=== PATIENT | male | born 1980 | race Caucasian/White ===

== ENCOUNTER 2018-04-15 16:47 | Inpatient (IN) ==
[2018-04-15] MEDS ORDERED: fentaNYL 10 mcg/mL Premix Drip 2,500 MCG/250 ML BAG IV.SIG PRN (22:47)
[2018-04-15] MEDS ORDERED: Morphine Inj 4 MG/ML Vial IV.PUSH PRN (22:47)
[2018-04-15] MEDS ORDERED: Bisacodyl 10 MG Supp RECTAL PRN (22:47)
[2018-04-15] MEDS ORDERED: Acetaminophen 325 MG Tablet PO PRN (22:47)
--- NOTE | 2018-04-15 22:53 | P.HPCC ---
History of Present Illness Primary Care Physician: UNKNOWN History of Present Illness: 38-year-old male was brought in the emergency department if [place] by his friend as an overdose of methamphetamines. Patient was agitated with aggressive behavior, uncontrolled movements, pressured speech, labored breathing, palpitations, chest pain, unsteady gait on a constant state of movement on the bed. Initial evaluation of the patient was limited due to the patient medical status. Local police and security had to intervene to assist restraining the patient to start IV access. Patient was intubated for an airway protection by ED attending, sedated, placed on the vent. Patient initial temperature was 104 rectally with a heart rate of 150 blood pressure of 136/74. Patient stated that he needs help and he presented voluntarily to the emergency room for for help. Later on after stabilizing of the patient his mother presented to the bedside stating that the patient is on Suboxone. He has been transferred to [facility] ICU sedated and intubated. Inpatient Certification: I certify that the inpatient services were ordered in accordance with Medicare regulations governing the order. This includes certification that hospital inpatient services are reasonable and necessary and in the case of services not specified as inpatient-only under 42 CFR 419.22(n), that they are appropriately provided as inpatient services in accordance to with the 2-midnight benchmark under 43 CFR 412.3(e) Estimated Total Length of Stay (Days): 5 Plans for Post Hospital Care: Not yet determined Review of Systems unobtainable due to endotracheal tube PMFSH - History History Provided By: Friend - Medical History Medical History: Medical History (Last Reviewed 04/15/18 @ 18:46 by Sourav Agudelo) Medical history unknown Surgical history unknown - Tobacco History Tobacco Use In Past 30 Days: Yes Smoking Status: Current every day smoker Tobacco Type: Cigarettes - Alcohol History How Often Do You Have a Drink Containing Alcohol: Unable to Obtain - Substance Use History Substance History: Active Abuse Medications and Allergies Active Medications: Current Medications Acetaminophen (Tylenol) 650 mg PO Q6H PRN PRN Reason: PAIN 1-10 AND/OR FEVER >101F Al Hydroxide/Mg Hydroxide (Milk Of Magnesia Liq) 30 ml PO Q12H PRN PRN Reason: Mild Constipation Albuterol (Duoneb Neb (Prn)) 1 ampul NEB Q2HR NEB PRN PRN Reason: WHEEZING Bisacodyl (Dulcolax Supp) 10 mg RECTAL DAILY PRN PRN Reason: SEVERE CONSITIPATION Chlorhexidine Gluconate (Peridex 0.12% Oral Kit) 15 ml OROPHARYNG BID@0800, 2000 [facility] Chlorhexidine Gluconate (Chlorhexidine 2% Cloth) 3 pack TOPICAL DAILY@0400 PA Stop: 04/21/18 03:59 Chlorhexidine Gluconate (Chlorhexidine 2% Cloth) 3 pack TOPICAL DAILY@0400 PRN PRN Reason: Extra cloth needed Stop: 04/21/18 03:59 Famotidine (Pepcid Pf Inj) 20 mg IV.PUSH Q12HR [facility] Heparin Sodium (Porcine) (Heparin Inj) 5,000 units SQ Q8H [facility] Last Admin: 04/15/18 23:25 Dose: 5,000 units Fentanyl (Fentanyl 10 Mcg/Ml Premix Drip) 2,500 mcg in 250 mls @ 5 mls/hr IV.SIG TITRATE PRN; Protocol PRN Reason: Per Protocol Midazolam HCl (Versed Inj) 100 mg in 100 mls @ 2 mls/hr IV.CONT TITRATE PRN; Protocol PRN Reason: See protocol Last Titration: 04/16/18 03:04 Dose: 6 mg/hr, 6 mls/hr Propofol (Diprivan 1000 Mg/100 Ml Inj) 1,000 mg in 100 mls @ 2.37 mls/hr IV.CONT TITRATE PRN; Protocol PRN Reason: Per Protocol Last Titration: 04/16/18 03:04 Dose: 50 mcg/kg/min, 23.7 mls/hr Sodium Chloride (Ns Inj) 1,000 mls @ 184 mls/hr IV.CONT .Q5H27M [facility] Last Infusion: 04/16/18 02:55 Dose: 184 mls/hr Lactulose (Lactulose Liq) 30 ml PO DAILY PRN PRN Reason: SEVERE CONSITIPATION Midazolam HCl (Versed Inj) 2 mg IV.PUSH Q1H PRN PRN Reason: SEDATION Miscellaneous Medication () 1 each OROPHARYNG 0000,0400,1200,1600 [facility] Last Admin: 04/15/18 23:25 Dose: 1 each Morphine Sulfate (Morphine Inj) 2 mg IV.PUSH Q2H PRN PRN Reason: PAIN SCALE 6 TO 10 Ondansetron HCl (Zofran Inj) 4 mg IV.PUSH Q6H PRN PRN Reason: NAUSEA OR VOMITING Senna/Docusate Sodium (Rika-Colace) 1 tab PO BID PA Sennosides (Senokot) 17.2 mg PO Q12H PRN PRN Reason: Moderate Constipation Sodium Chloride (Ns Flush) 2 ml IV.FLUSH BID PA Sodium Chloride (Ns Flush) 2 ml IV.FLUSH PRN PRN PRN Reason: FLUSH AFTER USING IV ACCESS Allergies Allergy/AdvReac Type Severity Reaction Status Date / Time No Known Allergies Allergy Verified 04/15/18 17:49 Home Medications Medication Instructions Recorded Confirmed Type Unable to Obtain Home Meds 04/15/18 04/15/18 History Results - Labs CBC & Chem 7: 04/16/18 03:49 04/16/18 03:49 Exam Vital signs: Intake & Output 04/15/18 04/15/18 04/16/18 06:59 18:59 06:59 Weight 79 kg Other: Weight On Admission 79 kg - Constitutional severe distress - Routine HEENT Exam Head: Present: normocephalic, atraumatic Eye: Present: PERRL ENT: Present: mucous membranes moist - Routine Neck Exam Absent: JVD, carotid bruit - Routine Respiratory Exam Present: patient mechanically ventilated. Absent: stridor, wheezes, crackles - Routine Cardiovascular Exam Present: RRR, S1, S2, tachycardia - Routine Abdominal Exam Present: soft, normoactive bowel sounds - Routine Extremities Exam Absent: cyanosis, clubbing, edema - Routine Skin Exam Present: intact. Absent: cyanosis, erythema - Routine Neurological Exam Present: altered mental status, moving all extremities Septic Shock Reassessment Septic shock perfusion: reassessment completed Caprini VTE Risk Assessment Caprini VTE Risk Assessment: Moderate/High Risk (score >= 2) Caprini Risk Assessment Model: Point Value = 1 Point Value = 2 Point Value = 3 Point Value = 5 Age 41-60 Minor surgery BMI > 25 kg/m2 Swollen legs Varicose veins or History of unexplained or recurrent spontaneous Oral contraceptives or hormone replacement Sepsis (< 1 month) Serious lung disease, including pneumonia (< 1 month) Abnormal pulmonary function Acute myocardial infarction Congestive heart failure (< 1 month) History of inflammatory bowel disease Medical patient at bed rest Age 61-74 Arthroscopic surgery Major open surgery (> 45 min) Laparoscopic surgery (> 45 min) Malignancy Confined to bed (> 72 hours) Immobilizing plaster cast Central venous access Age >= 75 History of VTE Family history of VTE Factor V Leiden Prothrombin [id number] Lupus anticoagulant Anticardiolipin antibodies Elevated serum homocysteine Heparin-induced thrombocytopenia Other congenital or acquired thrombophilia Stroke (< 1 month) Elective arthroplasty Hip, pelvis, or leg fracture Acute spinal cord injury (< 1 month) Prophylaxis Regimen: Total Risk Factor Score Risk Level Prophylaxis Regimen 0-1 Low Early ambulation 2 Moderate Order ONE of the following: *Sequential Compression Device (SCD) *Heparin 5000 units SQ BID 3-4 Higher Order ONE of the following medications: *Heparin 5000 units SQ TID *Enoxaparin/Lovenox 40 mg SQ daily (WT < 150 kg, CrCl > 30 mL/min) *Enoxaparin/Lovenox 30 mg SQ daily (WT < 150 kg, CrCl > 10-29 mL/min) *Enoxaparin/Lovenox 30 mg SQ BID (WT < 150 kg, CrCl > 30 mL/min) AND/OR *Sequential Compression Device (SCD) 5 or more Highest Order ONE of the following medications: *Heparin 5000 units SQ TID (Preferred with Epidurals) *Enoxaparin/Lovenox 40 mg SQ daily (WT < 150 kg, CrCl > 30 mL/min) *Enoxaparin/Lovenox 30 mg SQ daily (WT < 150 kg, CrCl > 10-29 mL/min) *Enoxaparin/Lovenox 30 mg SQ BID (WT < 150 kg, CrCl > 30 mL/min) AND *Sequential Compression Device (SCD) Assessment and Plan - Assessment and Plan Plan: Respiratory failure -Intubated for an airway protection -No weaning until neurologically improved -Vent bundle -DuoNeb's as needed Amphetamine intoxication -Versed, fentanyl, propofol for sedation -Aggressive IV fluid hydration -Monitor for withdrawal -Sedation vacation daily Acute kidney injury -Severe dehydration -Strict I's and O's -IV fluid hydration -Monitor electrolytes and creatinine levels Transaminitis -Likely due to drug overdose -Monitor trend and watch for coagulopathy Fever -With tachycardia -Due to methamphetamine intoxication -No antibiotics at this time DVT GI prophylaxis -Teds SCDs -Subcu heparin -Pepcid 35 minutes of critical care H&P: Quality - VTE Deep Vein Thrombosis/Pulmonary Embolism Present on Admission: No
[2018-04-15] MEDS: Midazolam 100 MG/100 ML Inj 100 MG/100 ML BAG IV.CONT PRN (23:00)
[2018-04-15] MEDS: Oral Hygiene Kit OROPHARYNG SCH (23:25)
[2018-04-15] MEDS: Heparin - SQ 10,000 UNITS/ML Vial SQ SCH (23:25)
[2018-04-15] MEDS: Sod Chloride 0.9% Inj 1,000 ML IV.CONT SCH (23:25)
[2018-04-15 23:29] LABS: Baso % (Auto) 0.3 % (0.0-2.0); Eos % (Auto) 0.3 % (0.0-4.0); Hematocrit 43.2 % (39.0-51.0); Hemoglobin 14.9 gm/dL (13.0-17.0); Lymph % (Auto) 13.7 % (9.0-44.0); Mean Corpuscular HGB Conc 34.6 % (32.0-36.0); Mean Corpuscular Hemoglobin 30.6 pg (27.0-34.0); Mean Corpuscular Volume 88.3 fL (80.0-100.0); Mean Platelet Volume 8.6 fL (7.0-11.0); Mono # (Auto) 1.4 th/mm3 (0.0-0.9); Mono % (Auto) 9.5 % (0.0-8.0); Neut # (Auto) 11.1 th/mm3 (1.8-7.7); Neut % (Auto) 76.2 % (16.0-70.0); Platelet Count 153 th/mm3 (150-450); Red Blood Count 4.89 mil/mm3 (4.50-5.90); Red Cell Distribution Width 14.4 % (11.6-17.2); White Blood Count 14.6 th/mm3 (4.0-11.0)
[2018-04-15 23:46] LABS: Activated Partial Thrombo Time 26.5 sec (23.4-31.7); INR 1.2 Ratio
[2018-04-15 23:51] LABS: Alanine Aminotransferase 79 U/L (12-78); Albumin 3.7 g/dL (3.4-5.0); Anion Gap 11 meq/L (5-15); Aspartate Aminotransferase 87 U/L (15-37); Blood Urea Nitrogen 25 mg/dL (7-18); Calcium 7.8 mg/dL (8.5-10.1); Carbon Dioxide 26.1 meq/L (21.0-32.0); Chloride 107 meq/L (98-107); Glomerular Filtration Rate 58 mL/min (>89); Glucose,Random 95 mg/dL (74-106); Magnesium 2.8 mg/dL (1.5-2.5); Phosphorus 3.9 mg/dL (2.5-4.9); Potassium 3.6 meq/L (3.5-5.1); Sodium 144 meq/L (136-145)
[2018-04-15 23:53] LABS: Alkaline Phosphatase 63 U/L (45-117); Total Protein 6.5 g/dL (6.4-8.2)
--- NOTE | 2018-04-15 23:56 | XR ---
EXAM DATE: 04/15/2018 11:50 PM EST AGE/SEX: 38 years / Male INDICATIONS: Respiratory failure. Overdose. CLINICAL DATA: This is the patient's subsequent encounter. Patient reports that signs and symptoms h ave been present for 1 day and indicates a pain score of Nonresponsive. MEDICAL/SURGICAL HISTORY: Non-responsive. Non-responsive. COMPARISON: [facility], CHEST 1V SINGLE AP, 04/15/2018. . FINDINGS: Endotracheal tube is stable in good position. Nasogastric tube descends into the stomach. Lungs are s ymmetrically aerated and grossly clear. Cardiac contours are stable and satisfactory. CONCLUSION: Interval NG tube placement. Electronically signed by: Maverick Mckinnon MD Board Certified Radiologist 04/15/2018 11:55 PM EST
[2018-04-16] MEDS: Propofol 1000 mg/100 ml Inj 1,000 MG/100 ML BOTTLE IV.CONT PRN ×6 (01:55→20:32)
[2018-04-16] MEDS ORDERED: Chlorhexidine Gluconate 2% 1 Pack (2 Cloths) TOPICAL PRN (04:00)
[2018-04-16 04:17] LABS: Baso % (Auto) 0.2 % (0.0-2.0); Eos # (Auto) 0.1 th/mm3 (0.0-0.4); Eos % (Auto) 0.8 % (0.0-4.0); Hematocrit 42.6 % (39.0-51.0); Hemoglobin 14.5 gm/dL (13.0-17.0); Lymph % (Auto) 15.9 % (9.0-44.0); Mean Corpuscular HGB Conc 33.9 % (32.0-36.0); Mean Corpuscular Hemoglobin 30.5 pg (27.0-34.0); Mean Platelet Volume 8.4 fL (7.0-11.0); Mono # (Auto) 1.2 th/mm3 (0.0-0.9); Mono % (Auto) 9.8 % (0.0-8.0); Neut # (Auto) 9.4 th/mm3 (1.8-7.7); Neut % (Auto) 73.3 % (16.0-70.0); Platelet Count 144 th/mm3 (150-450); Red Blood Count 4.74 mil/mm3 (4.50-5.90); Red Cell Distribution Width 14.6 % (11.6-17.2); White Blood Count 12.8 th/mm3 (4.0-11.0)
[2018-04-16 04:27] LABS: Activated Partial Thrombo Time 27.5 sec (23.4-31.7); INR 1.2 Ratio; Prothrombin Time 11.8 sec (9.8-11.6)
[2018-04-16 04:39] LABS: Alanine Aminotransferase 75 U/L (12-78); Albumin 3.6 g/dL (3.4-5.0); Anion Gap 11 meq/L (5-15); Aspartate Aminotransferase 89 U/L (15-37); Blood Urea Nitrogen 26 mg/dL (7-18); Calcium 7.7 mg/dL (8.5-10.1); Carbon Dioxide 23.9 meq/L (21.0-32.0); Chloride 109 meq/L (98-107); Glomerular Filtration Rate 50 mL/min (>89); Glucose,Random 80 mg/dL (74-106); Magnesium 2.7 mg/dL (1.5-2.5); Phosphorus 4.1 mg/dL (2.5-4.9); Potassium 3.4 meq/L (3.5-5.1); Sodium 144 meq/L (136-145)
[2018-04-16 04:41] LABS: Alkaline Phosphatase 60 U/L (45-117); Total Protein 6.3 g/dL (6.4-8.2)
[2018-04-16] MEDS: Oral Hygiene Kit OROPHARYNG SCH ×3 (04:50→15:27)
[2018-04-16] MEDS: Chlorhexidine Gluconate 2% 1 Pack (2 Cloths) TOPICAL SCH (04:50)
[2018-04-16] MEDS: Sod Chloride 0.9% Inj 1,000 ML IV.SIG SCH ×3 (04:50→05:46)
[2018-04-16] MEDS: Sod Chloride 0.9% Inj 1,000 ML IV.CONT SCH ×4 (04:50→19:54)
[2018-04-16] MEDS: Heparin - SQ 10,000 UNITS/ML Vial SQ SCH ×2 (06:09→15:26)
[2018-04-16] MEDS: Senna/Docusate Sodium 8.6/50 MG Tablet PO SCH ×2 (08:13→21:26)
[2018-04-16] MEDS: Chlorhexidine 0.12% Oral Kit 15 ML UDC OROPHARYNG SCH ×2 (08:14→21:26)
[2018-04-16] MEDS: Famotidine PF Inj 20 MG/2 ML Vial IV.PUSH SCH ×2 (08:15→21:26)
[2018-04-16] MEDS ORDERED: Famotidine PF Inj 20 MG/2 ML Vial IV.PUSH SCH (09:00)
--- NOTE | 2018-04-16 10:26 | P.DIET ---
Nutritional Evaluation Type of nutrition evaluation: initial Nutrition consult regarding: Tube Feeding Screening comments: 04/16/18 TF review Objective - Diagnosis overdose - Objective Body Mass Index: 24.3 % IBW: 101 (IBW = 172lb) Body Weight Used for Calculations: Actual (79g) Energy Needs - Lower Range (kCal/kg): 25 Energy Needs - Upper Range (kCal/kg): 30 Lower Limit kCal/kg (kCals): 1,975 Upper Limit kCal/kg (kCals): 2,370 Lower Limit Protein Factor (Grams per Kg): 1.1 Upper Limit Protein Factor (Grams per Kg): 1.3 Lower Protein Needs (Protein): 87 Upper Protein Needs (Protein): 103 Dietitian Reviewed in Medical Record: Curent medications, Intake & Output, Labs , Medical history, Tube feeding Diet Order: NPO, TF'ing Objective Comments: PMH: unknown Meds: versed, propofol Labs: K+ 3.4, BUN 26, Cr 1.57, estGFR 50, Mg 2.7 Assessment Assessment: Pt currently intubated, sedated w/ propofol, and on mech vent. Pt receiving TF of Jevity 1.5 @ 30mL/hr w/ goal rate of 65mL/hr per . RD to agree w/ TF of Jevity 1.5 @ 65mL/hr to provide 2340kcal, 100g of protein, and 1186mL of free water to best meet pts nutritional needs. Propofol provides additional kcal ( 1.1kcal/mL) while running. Continue to monitor TF tolerance. Labs reviewed, dietitian following. Recommendations: 1. Continue Jevity 1.5 @ 65mL/hr to best meet pts nutritional needs 2. Propofol provides additional kcal (1.1kcal/mL) while running 3. Continue to monitor TF tolerance 4. Dietitian following Dietitian to Monitor: Lab values, Renal labs, Intake & Output, Tube feeding tolerance, Weight change, Medical course
[2018-04-16] MEDS ORDERED: Dextrose 50% in Water 50 ML Vial IV.PUSH PRN (11:57)
--- NOTE | 2018-04-16 12:02 | P.PNCC ---
Subjective Subjective Remarks/Hospital Course: 04/16: Afebrile . The patient remains intubated and sedated. IV fluids currently at 184 cc/hr. initial CK was noted to be >800. Family at bedside all questions answered. Objective Vital Signs / I&O: Vital Signs 04/15/18 22:26 04/15/18 22:42 04/15/18 23:00 Temperature Pulse Rate 76 76 Respiratory Rate 12 12 12 Blood Pressure 129/83 Pulse Oximetry 100 100 100 04/16/18 00:00 04/16/18 00:22 04/16/18 01:00 Temperature 95.0 F L 96.6 F L Pulse Rate 82 95 H Respiratory Rate 12 12 12 Blood Pressure 124/79 129/82 Pulse Oximetry 100 99 99 04/16/18 02:00 04/16/18 03:00 04/16/18 04:00 Temperature 98.8 F 99.7 F H 100.2 F H Pulse Rate 103 H 106 H 109 H Respiratory Rate 12 12 12 Blood Pressure 143/86 H 143/83 H 147/82 H Pulse Oximetry 99 99 98 04/16/18 04:30 04/16/18 05:00 04/16/18 06:00 Temperature 100.4 F H 99.3 F Pulse Rate 108 H 102 H Respiratory Rate 12 12 12 Blood Pressure 142/79 H 141/77 H Pulse Oximetry 98 99 99 04/16/18 07:00 04/16/18 08:00 04/16/18 08:17 Temperature 98.8 F 98.6 F Pulse Rate 97 H 92 H Respiratory Rate 12 12 12 Blood Pressure 142/81 H 138/83 Pulse Oximetry 99 99 99 04/16/18 09:00 04/16/18 10:00 04/16/18 11:34 Temperature 98.4 F 98.4 F Pulse Rate 87 85 Respiratory Rate 12 12 12 Blood Pressure 143/86 H Pulse Oximetry 99 99 99 Intake & Output 04/15/18 04/16/18 04/16/18 18:59 06:59 18:59 Intake Total 4174 / 4174 1100 / 1100 Output Total 600 / 600 Balance 3574 / 3574 1100 / 1100 Weight 79 kg Intake: IV 4125 / 4125 1100 / 1100 Versed Inj 100 mg In 100 ml @ 2 25 / 25 MG/HR 2 mls/hr IV.CONT TITRATE PRN Rx#:[id number] Diprivan 1000 mg/100 ml Inj 1, 100 / 100 100 / 100 000 mg In 100 ml @ 5 MCG/KG/MIN 2.37 mls/hr IV.CONT TITRATE PRN Rx#:[id number] NS Inj 1,000 ML @ 184 mls/hr IV 1000 / 1000 1000 / 1000 .CONT .Q5H27M PA Rx#:[id number] NS Inj 1,000 ML @ 3000 mls/hr 3000 / 3000 IV.SIG Q20M [facility] Rx#:[id number] Tube Feeding 49 Output: Urine Amount (Catheter) 600 / 600 Indwelling Urethral Catheter 600 / 600 Other: Weight On Admission 79 kg Result Diagrams: 04/16/18 03:49 04/16/18 03:49 Other Results: Laboratory Results WBC 12.8 th/mm3 (4.0-11.0) H 04/16/18 03:49 RBC 4.74 mil/mm3 (4.50-5.90) 04/16/18 03:49 Hgb 14.5 gm/dL (13.0-17.0) 04/16/18 03:49 Hct 42.6 % (39.0-51.0) 04/16/18 03:49 MCV 90.0 fL (80.0-100.0) 04/16/18 03:49 MCH 30.5 pg (27.0-34.0) 04/16/18 03:49 MCHC 33.9 % (32.0-36.0) 04/16/18 03:49 RDW 14.6 % (11.6-17.2) 04/16/18 03:49 Plt Count 144 th/mm3 (150-450) L 04/16/18 03:49 MPV 8.4 fL (7.0-11.0) 04/16/18 03:49 Neut % (Auto) 73.3 % (16.0-70.0) H 04/16/18 03:49 Lymph % (Auto) 15.9 % (9.0-44.0) 04/16/18 03:49 [place] % (Auto) 9.8 % (0.0-8.0) H 04/16/18 03:49 Eos % (Auto) 0.8 % (0.0-4.0) 04/16/18 03:49 Baso % (Auto) 0.2 % (0.0-2.0) 04/16/18 03:49 Neut # (Auto) 9.4 th/mm3 (1.8-7.7) H 04/16/18 03:49 Lymph # (Auto) 2.0 th/mm3 (1.0-4.8) 04/16/18 03:49 [place] # (Auto) 1.2 th/mm3 (0.0-0.9) H 04/16/18 03:49 Eos # (Auto) 0.1 th/mm3 (0.0-0.4) 04/16/18 03:49 Baso # (Auto) 0.0 th/mm3 (0.0-0.2) 04/16/18 03:49 WBC Differential . 04/16/18 03:49 Differential Comment Auto diff final 04/16/18 03:49 PT 11.8 sec (9.8-11.6) H 04/16/18 03:49 INR 1.2 Ratio 04/16/18 03:49 APTT 27.5 sec (23.4-31.7) 04/16/18 03:49 Sodium 144 meq/L (136-145) 04/16/18 03:49 Potassium 3.4 meq/L (3.5-5.1) L 04/16/18 03:49 Chloride 109 meq/L (98-107) H 04/16/18 03:49 Carbon Dioxide 23.9 meq/L (21.0-32.0) 04/16/18 03:49 Anion Gap 11 meq/L (5-15) 04/16/18 03:49 BUN 26 mg/dL (7-18) H 04/16/18 03:49 Creatinine 1.57 mg/dL (0.60-1.30) H 04/16/18 03:49 Estimated GFR 50 mL/min (>89) L 04/16/18 03:49 POC Glucose 88 mg/dl (68-110) 04/16/18 11:46 Random Glucose 80 mg/dL (74-106) 04/16/18 03:49 Calcium 7.7 mg/dL (8.5-10.1) L 04/16/18 03:49 Phosphorus 4.1 mg/dL (2.5-4.9) 04/16/18 03:49 Magnesium 2.7 mg/dL (1.5-2.5) H 04/16/18 03:49 Total Bilirubin 1.0 mg/dL (0.2-1.0) 04/16/18 03:49 AST 89 U/L (15-37) H 04/16/18 03:49 ALT 75 U/L (12-78) 04/16/18 03:49 Alkaline Phosphatase 60 U/L (45-117) 04/16/18 03:49 Total Protein 6.3 g/dL (6.4-8.2) L 04/16/18 03:49 Albumin 3.6 g/dL (3.4-5.0) 04/16/18 03:49 Nasal Screen MRSA (PCR) Not detected (Negative) 04/15/18 22:15 Impressions Chest X-Ray 04/15/18 22:50 CONCLUSION: Interval NG tube placement. Assessment and Plan - Assessment and Plan Plan: Respiratory failure -Intubated for an airway protection -No weaning until neurologically improved -Vent bundle -DuoNeb's as needed -Begin CPAP trials Amphetamine intoxication -Versed, fentanyl, propofol for sedation, consider Precedex infusion for transitioning for CPAP trial -Aggressive IV fluid hydration -Monitor for withdrawal -Sedation vacation daily Acute kidney injury Rhabdomyolysis -Severe dehydration -Strict I's and O's -IV fluid hydration -Monitor electrolytes and creatinine levels -Follow-up creatinine kinase Transaminitis -Likely due to drug overdose -Monitor trend and watch for coagulopathy -Obtain hepatitis profile Fever -With tachycardia -Due to methamphetamine intoxication -No antibiotics at this time DVT GI prophylaxis -Teds SCDs -Subcu heparin -Pepcid My billing statement This patient remains critically ill with one or more organ systems which are or may become a threat to life. I have spent in excess of 31 minutes discontinuously in the care and management of this patient. This time is exclusive of procedures, and includes, but is not limited to, evaluation of the patient, review of the medical record, discussions with family, consultants, nursing staff, or respiratory therapy, and documentation in the medical record. Code Status: Full Discussed Condition With: Family and WOMEN'[employer] STUDIES LECTURER at bedside
[2018-04-16 12:30] LABS: ABG PCO2 35 mmHg (38-42); ABG PO2 183 mmHG (61-120)
[2018-04-16] MEDS ORDERED: Potassium Chlor 40 mEq Premix 40 MEQ/100 ML PIGGYBACK IV.SIG PRN ×2 (12:40)
[2018-04-16] MEDS ORDERED: Potassium Phosphate Inj 30 MMOL in Sodium Chlor 0.9% Inj 250 ML IV.SIG PRN (12:40)
[2018-04-16] MEDS ORDERED: Sodium Phosphate Inj 30 MMOL in Sodium Chlor 0.9% Inj 250 ML IV.SIG PRN (12:40)
[2018-04-16] MEDS ORDERED: Magnesium Oxide 400 MG Tablet PO PRN (12:40)
[2018-04-16] MEDS ORDERED: Potassium Chlor 20 mEq Premix 20 MEQ/100 ML PIGGYBACK IV.SIG PRN ×2 (12:40)
[2018-04-16] MEDS ORDERED: Potassium Chloride Liq 20 MEQ/15 ML UDC PO PRN ×2 (12:40)
[2018-04-16] MEDS ORDERED: Magnesium Sulfate Inj 4 GM in Sodium Chlor 0.9% Inj 92 ML IV.SIG PRN (12:40)
[2018-04-16] MEDS ORDERED: Magnesium Sulfate Inj 2 GM in Sodium Chlor 0.9% Inj 96 ML IV.SIG PRN (12:40)
[2018-04-16] MEDS ORDERED: Potassium Phosphate 500 MG Soluble Tablet PO PRN ×2 (12:40)
[2018-04-16] MEDS: Insulin NovoLOG Aspart Correctional Sugar Inj SQ SCH ×2 (13:15→17:59)
[2018-04-16 15:32] LABS: CKMB Percent 0.9 % (0.0-4.0); Creatine Kinase MB 17.5 ng/mL (0.5-3.6)
[2018-04-16] MEDS: Midazolam 100 MG/100 ML Inj 100 MG/100 ML BAG IV.CONT PRN (16:51)
[2018-04-17] MEDS: Heparin - SQ 10,000 UNITS/ML Vial SQ SCH ×2 (00:14→06:05)
[2018-04-17] MEDS: Oral Hygiene Kit OROPHARYNG SCH ×4 (00:15→15:27)
[2018-04-17] MEDS: Propofol 1000 mg/100 ml Inj 1,000 MG/100 ML BOTTLE IV.CONT PRN ×4 (00:28→13:15)
[2018-04-17] MEDS: Insulin NovoLOG Aspart Correctional Sugar Inj SQ SCH ×4 (00:29→18:32)
[2018-04-17] MEDS: Sod Chloride 0.9% Inj 1,000 ML IV.CONT SCH ×2 (01:30→06:05)
[2018-04-17] MEDS: Chlorhexidine Gluconate 2% 1 Pack (2 Cloths) TOPICAL SCH (04:52)
--- NOTE | 2018-04-17 04:53 | XR ---
EXAM DATE: 04/17/2018 4:43 AM EST AGE/SEX: 38 years / Male INDICATIONS: Shortness of breath, possible pulmonary disease. CLINICAL DATA: This is the patient's subsequent encounter. Patient reports that signs and symptoms h ave been present for 3 days and indicates a pain score of Nonresponsive. MEDICAL/SURGICAL HISTORY: Non-responsive. Non-responsive. COMPARISON: C, CHEST 1V SINGLE AP, 04/15/2018. . FINDINGS: Endotracheal tube is present with tip 4 cm above the tamika. Nasogastric tube descends into the stoma ch. Lungs are symmetrically aerated and grossly clear. Cardiac contours are satisfactory. CONCLUSION: Satisfactory chest appearance Electronically signed by: Maverick Mckinnon MD Board Certified Radiologist 04/17/2018 4:52 AM EST
[2018-04-17 05:57] LABS: Baso % (Auto) 0.4 % (0.0-2.0); Eos # (Auto) 0.1 th/mm3 (0.0-0.4); Eos % (Auto) 2.4 % (0.0-4.0); Hematocrit 42.9 % (39.0-51.0); Hemoglobin 14.5 gm/dL (13.0-17.0); Lymph % (Auto) 16.7 % (9.0-44.0); Mean Corpuscular HGB Conc 33.9 % (32.0-36.0); Mean Corpuscular Hemoglobin 30.5 pg (27.0-34.0); Mono # (Auto) 0.4 th/mm3 (0.0-0.9); Mono % (Auto) 7.2 % (0.0-8.0); Neut # (Auto) 4.4 th/mm3 (1.8-7.7); Neut % (Auto) 73.3 % (16.0-70.0); Platelet Count 128 th/mm3 (150-450); Red Blood Count 4.77 mil/mm3 (4.50-5.90); Red Cell Distribution Width 15.3 % (11.6-17.2)
[2018-04-17 06:30] LABS: Alanine Aminotransferase 70 U/L (12-78); Albumin 2.9 g/dL (3.4-5.0); Alkaline Phosphatase 59 U/L (45-117); Anion Gap 8 meq/L (5-15); Aspartate Aminotransferase 90 U/L (15-37); Blood Urea Nitrogen 14 mg/dL (7-18); Calcium 7.7 mg/dL (8.5-10.1); Carbon Dioxide 24.6 meq/L (21.0-32.0); Chloride 118 meq/L (98-107); Glomerular Filtration Rate 69 mL/min (>89); Glucose,Random 124 mg/dL (74-106); Magnesium 2.3 mg/dL (1.5-2.5); Phosphorus 1.9 mg/dL (2.5-4.9); Potassium 3.4 meq/L (3.5-5.1); Sodium 151 meq/L (136-145); Total Protein 5.8 g/dL (6.4-8.2)
[2018-04-17 06:46] LABS: Hepatitits B Surface Antigen Nonreactive (Nonreactive)
[2018-04-17 07:11] LABS: Hepatitis A IgM Antibody Nonreactive (Nonreactive)
[2018-04-17] MEDS: Chlorhexidine 0.12% Oral Kit 15 ML UDC OROPHARYNG SCH ×2 (08:19→20:07)
[2018-04-17] MEDS: Senna/Docusate Sodium 8.6/50 MG Tablet PO SCH ×2 (08:20→20:08)
[2018-04-17] MEDS: Famotidine PF Inj 20 MG/2 ML Vial IV.PUSH SCH ×2 (08:20→20:08)
[2018-04-17] MEDS: Midazolam 100 MG/100 ML Inj 100 MG/100 ML BAG IV.CONT PRN (08:47)
[2018-04-17] MEDS ORDERED: Dexmedetomidine Inj 200 MCG in Sodium Chlor 0.9% Inj 48 ML IV.CONT PRN (10:48)
--- NOTE | 2018-04-17 11:11 | P.PNCC ---
Subjective Subjective Remarks/Hospital Course: 04/16: Afebrile . The patient remains intubated and sedated. IV fluids currently at 184 cc/hr. initial CK was noted to be >800. Family at bedside all questions answered. 04/17: Patient continues on sedation, daily sedation vacation attempted patient became very agitated and combative. Plan for initiation of Precedex infusion and discontinuation or minimization of propofol and Versed to initiate CPAP trials today. Urine output adequate creatinine 1.1 today. Hepatitis panel revealed positive for hepatitis C. family at bedside medical status update provided. Objective Vital Signs / I&O: Vital Signs 04/16/18 11:00 04/16/18 11:34 04/16/18 12:00 Temperature 98.8 F 99.1 F Pulse Rate 85 85 Respiratory Rate 12 12 12 Blood Pressure 138/85 141/85 H Pulse Oximetry 99 99 99 04/16/18 13:00 04/16/18 14:00 04/16/18 15:00 Temperature 99.3 F 99.5 F 99.1 F Pulse Rate 88 89 84 Respiratory Rate 12 12 12 Blood Pressure 146/88 H 135/77 132/78 Pulse Oximetry 99 98 99 04/16/18 16:00 04/16/18 17:00 04/16/18 18:00 Temperature 98.8 F 98.2 F 98.1 F Pulse Rate 80 74 71 Respiratory Rate 12 12 12 Blood Pressure 132/81 136/82 139/85 Pulse Oximetry 99 99 99 04/16/18 19:00 04/16/18 20:00 04/16/18 21:00 Temperature 98.4 F 98.4 F 98.4 F Pulse Rate 71 73 73 Respiratory Rate 12 12 12 Blood Pressure 132/82 134/81 136/84 Pulse Oximetry 99 99 99 04/16/18 21:51 04/16/18 22:00 04/16/18 23:00 Temperature 98.4 F 98.4 F Pulse Rate 74 70 Respiratory Rate 12 12 12 Blood Pressure 137/85 138/84 Pulse Oximetry 100 99 99 04/17/18 00:00 04/17/18 00:57 04/17/18 01:00 Temperature 98.4 F 98.4 F Pulse Rate 70 68 Respiratory Rate 12 12 12 Blood Pressure 137/86 137/86 Pulse Oximetry 99 99 99 04/17/18 02:00 04/17/18 03:00 04/17/18 04:00 Temperature 98.4 F 98.6 F 98.6 F Pulse Rate 66 65 64 Respiratory Rate 12 12 12 Blood Pressure 141/88 H 142/90 H 137/89 Pulse Oximetry 99 99 99 04/17/18 05:00 04/17/18 06:00 04/17/18 08:48 Temperature 98.6 F 98.6 F Pulse Rate 64 67 Respiratory Rate 12 12 13 Blood Pressure 141/89 H 136/84 Pulse Oximetry 98 99 99 Intake & Output 04/16/18 04/17/18 04/17/18 18:59 06:59 18:59 Intake Total 3042 / 3042 3828 / 3828 200 / 200 Output Total 3700 / 3700 2200 / 2200 Balance -658 / -658 1628 / 1628 200 / 200 Weight 87 kg Intake: IV 2375 / 2375 3300 / 3300 200 / 200 Versed Inj 100 mg In 100 ml @ 2 75 / 75 100 / 100 MG/HR 2 mls/hr IV.CONT TITRATE PRN Rx#:[id number] Diprivan 1000 mg/100 ml Inj 1, 300 / 300 300 / 300 100 / 100 000 mg In 100 ml @ 5 MCG/KG/MIN 2.37 mls/hr IV.CONT TITRATE PRN Rx#:[id number] NS Inj 1,000 ML @ 200 mls/hr IV 2000 / 2000 3000 / 3000 .CONT .[facility] Rx#:[id number] Tube Feeding 547 / 547 468 / 468 Tube Irrigant 120 / 120 60 / 60 Output: Urine Amount (Catheter) 3700 / 3700 2200 / 2200 Indwelling Urethral Catheter 3700 / 3700 2200 / 2200 Result Diagrams: 04/17/18 03:56 04/17/18 03:56 Other Results: Laboratory Results WBC 6.0 th/mm3 (4.0-11.0) 04/17/18 03:56 RBC 4.77 mil/mm3 (4.50-5.90) 04/17/18 03:56 Hgb 14.5 gm/dL (13.0-17.0) 04/17/18 03:56 Hct 42.9 % (39.0-51.0) 04/17/18 03:56 MCV 90.0 fL (80.0-100.0) 04/17/18 03:56 MCH 30.5 pg (27.0-34.0) 04/17/18 03:56 MCHC 33.9 % (32.0-36.0) 04/17/18 03:56 RDW 15.3 % (11.6-17.2) 04/17/18 03:56 Plt Count 128 th/mm3 (150-450) L 04/17/18 03:56 MPV 9.0 fL (7.0-11.0) 04/17/18 03:56 Neut % (Auto) 73.3 % (16.0-70.0) H 04/17/18 03:56 Lymph % (Auto) 16.7 % (9.0-44.0) 04/17/18 03:56 [place] % (Auto) 7.2 % (0.0-8.0) 04/17/18 03:56 Eos % (Auto) 2.4 % (0.0-4.0) 04/17/18 03:56 Baso % (Auto) 0.4 % (0.0-2.0) 04/17/18 03:56 Neut # (Auto) 4.4 th/mm3 (1.8-7.7) 04/17/18 03:56 Lymph # (Auto) 1.0 th/mm3 (1.0-4.8) 04/17/18 03:56 [place] # (Auto) 0.4 th/mm3 (0.0-0.9) 04/17/18 03:56 Eos # (Auto) 0.1 th/mm3 (0.0-0.4) 04/17/18 03:56 Baso # (Auto) 0.0 th/mm3 (0.0-0.2) 04/17/18 03:56 WBC Differential . 04/17/18 03:56 Differential Comment Auto diff final 04/17/18 03:56 PT 11.8 sec (9.8-11.6) H 04/16/18 03:49 INR 1.2 Ratio 04/16/18 03:49 APTT 27.5 sec (23.4-31.7) 04/16/18 03:49 Puncture Site Right radial 04/16/18 12:20 Patient Temperature 98.6 04/16/18 12:20 O2 Saturation 97 % (90-100) 04/16/18 12:20 ABG pH 7.41 (7.380-7.420) 04/16/18 12:20 ABG pCO2 35 mmHg (38-42) L 04/16/18 12:20 ABG pO2 183 mmHG (61-120) H 04/16/18 12:20 ABG HCO3 22 mmol/L (22-26) 04/16/18 12:20 ABG O2 Content 19.5 Vol % (12.0-20.0) 04/16/18 12:20 ABG Base Excess -2.0 mmol/L (-2-2) 04/16/18 12:20 ABG Methemoglobin 1.6 % (0-2) 04/16/18 12:20 Emiliano Test Present 04/16/18 12:20 Hemoglobin 14.1 G/DL (12.0-16.0) 04/16/18 12:20 Carboxyhemoglobin 0.7 % (0-4) 04/16/18 12:20 O2 Delivery Device Ventilator 04/16/18 12:20 Vent Setting See comments 04/16/18 12:20 Inspired O2 35 % 04/16/18 12:20 Critical Value No 04/16/18 12:20 Sodium 151 meq/L (136-145) H 04/17/18 03:56 Potassium 3.4 meq/L (3.5-5.1) L 04/17/18 03:56 Chloride 118 meq/L (98-107) H D 04/17/18 03:56 Carbon Dioxide 24.6 meq/L (21.0-32.0) 04/17/18 03:56 Anion Gap 8 meq/L (5-15) 04/17/18 03:56 BUN 14 mg/dL (7-18) 04/17/18 03:56 Creatinine 1.18 mg/dL (0.60-1.30) 04/17/18 03:56 Estimated GFR 69 mL/min (>89) L 04/17/18 03:56 POC Glucose 75 mg/dl (68-110) 04/17/18 05:39 Random Glucose 124 mg/dL (74-106) H 04/17/18 03:56 Calcium 7.7 mg/dL (8.5-10.1) L 04/17/18 03:56 Phosphorus 1.9 mg/dL (2.5-4.9) L D 04/17/18 03:56 Magnesium 2.3 mg/dL (1.5-2.5) 04/17/18 03:56 Total Bilirubin 0.4 mg/dL (0.2-1.0) 04/17/18 03:56 Direct Bilirubin 0.2 mg/dL (0.0-0.2) 04/17/18 03:56 Indirect Bilirubin 0.2 mg/dL (0.0-0.8) 04/17/18 03:56 AST 90 U/L (15-37) H 04/17/18 03:56 ALT 70 U/L (12-78) 04/17/18 03:56 Alkaline Phosphatase 59 U/L (45-117) 04/17/18 03:56 Total Creatine Kinase 1883 U/L (39-308) H 04/16/18 14:00 CK-MB (CK-2) 17.5 ng/mL (0.5-3.6) H 04/16/18 14:00 CK-MB (CK-2) % 0.9 % (0.0-4.0) 04/16/18 14:00 Total Protein 5.8 g/dL (6.4-8.2) L 04/17/18 03:56 Albumin 2.9 g/dL (3.4-5.0) L D 04/17/18 03:56 Nasal Screen MRSA (PCR) Not detected (Negative) 04/15/18 22:15 Salicylates Less than 1.7 mg/dL (2.8-20.0) L 04/16/18 14:00 Acetaminophen Less than 2.0 mcg/mL (10.0-30.0) L 04/16/18 14:00 Hepatitis A IgM Ab Nonreactive (Nonreactive) 04/17/18 03:56 Hep Bs Antigen Nonreactive (Nonreactive) 04/17/18 03:56 Hep B Core IgM Ab Nonreactive (Nonreactive) 04/17/18 03:56 Hep C IgG Ab Reactive (Nonreactive) H 04/17/18 03:56 Impressions Chest X-Ray 04/17/18 04:00 CONCLUSION: Satisfactory chest appearance Objective Remarks: GENERAL: Is a well-developed well-nourished male sedated and intubated. SKIN: Warm and dry. HEAD: Atraumatic. Normocephalic. EYES: Pupils equal and round. No scleral icterus. No injection or drainage. ENT: No nasal bleeding or discharge. Mucous membranes pink and moist. NECK: Trachea midline. No JVD. CARDIOVASCULAR: Normal rate, regular rhythm. RESPIRATORY: No accessory muscle use. Clear to auscultation. Breath sounds equal bilaterally. GASTROINTESTINAL: Abdomen soft, non-tender, nondistended. No guarding. MUSCULOSKELETAL: Extremities without clubbing, cyanosis, or edema. No obvious deformities. NEUROLOGICAL: Sedated currently on Versed and Propofol .RASS -2. No gross focal/sensory deficits. Follows commands in all 4 extremities. Assessment and Plan - Assessment and Plan Plan: Respiratory failure -Intubated for an airway protection -Initiate daily sedation vacation, use Precedex to transition -No weaning until neurologically improved -Vent bundle -DuoNeb's as needed -Continue CPAP trials Amphetamine intoxication -Wean off Versed, propofol for sedation, institute Precedex infusion for CPAP trial -Change IV fluids to LR at 125/now -Monitor for withdrawal -Sedation vacation daily -Salicylate and Tylenol levels low Acute kidney injury Rhabdomyolysis -Severe dehydration-resolved -Strict I's and O's -IV fluid hydration -Monitor electrolytes and creatinine levels -Follow-up creatinine kinase Transaminitis Hepatitis C -Likely due to drug overdose -Monitor trend and watch for coagulopathy -Obtain INR in a.m. -Hepatitis C positive Fever -With tachycardia -Due to methamphetamine intoxication -No antibiotics at this time DVT GI prophylaxis -Teds SCDs -Subcu heparin -Pepcid Level 3 followup Code Status: Full Discussed Condition With: Discussed with mother at bedside and CRTT at bedside.
--- NOTE | 2018-04-17 11:20 | ECG ---
Date Performed: 04/16/2018 Time Performed: 14:21:10 PTAGE: 38 years EKG: Sinus rhythm INCOMPLETE RIGHT BUNDLE BRANCH BLOCK BORDERLINE ECG NO PREVIOUS TRACING DOCTOR: Abdirahman De La Cruz Interpretating Date/Time 04/17/2018 11:18:23
[2018-04-17] MEDS: Dexmedetomidine Inj 200 MCG in Sodium Chlor 0.9% Inj 48 ML IV.CONT PRN ×5 (11:45→20:46)
[2018-04-17] MEDS ORDERED: Haloperidol Inj 5 MG/ML Ampul IV.PUSH PRN ×2 (15:13→17:37)
[2018-04-17 15:37] LABS: INR 1.1 Ratio; Prothrombin Time 10.7 sec (9.8-11.6)
--- NOTE | 2018-04-17 15:46 | P.CONPSY ---
Provisional Diagnosis Admission Date: April 15, 2018 22:15 Ranson I.: Unspecified psychosis, polysubstance dependance, including, opiates, cocaine and meth, Bipolar by history Ranson II.: Strong cluster B traits, Antisocial personalty disorder History of Present Illness Service: CC Primary Care Provider: UNKNOWN History of Present Illness: The patient is a 38-year-old man, domiciled with his mother in [facility] [place] , unemployed, single, he has a girlfriend, with a psychiatric history of self- reported bipolar disorder, polysubstance dependence including opiates, amphetamines, cocaine, alcohol, Suboxone, unknown dose, no previous psychiatric admissions, he denies previous suicidal attempts, poor impulse control, history of incarcerations, violence, no significant medical history, who was brought in the emergency department if [place] by his friend as an overdose of methamphetamines. Patient was agitated with aggressive behavior, uncontrolled movements, the patient was described as having prominent pressured speech, labored breathing, palpitations, chest pain, unsteady gait on a constant state of movement on the bed. Initial evaluation of the patient was limited due to the patient medical status. Local police and security had to intervene to assist restraining the patient to start IV access. Patient was intubated for an airway protection by ED attending, sedated, placed on the vent. Patient initial temperature was 104 rectally with a heart rate of 150 blood pressure of 136/74. Patient stated that he needs help and he presented voluntarily to the emergency room for for help. Later on after stabilizing of the patient his mother presented to the bedside stating that the patient is on Suboxone. He has been transferred to [facility] ICU sedated and intubated. The patient was admitted due to respiratory failure, amphetamine intoxication , acute kidney injury, transaminitis, fever. Once the patient was extubated in the ICU, he became extremely aggressive, and for this reason he was consulted to psychiatry as an emergency. The chart was reviewed. The case was widely discussed with nurse in charge and also with critical care doctor. When I arrived to the ICU I find the patient restrained in 4 points, he is fighting with the restraint, very disorganized, aggressive, requesting to be discharged. The patient is persistently asking to find his friend Maverick "who was with me". At some point during the interview he accused me to kill his best friend. The patient is completely disoriented, he is oriented in person, but disoriented in time and place. His mother and girlfriend at bedside seem to be hopeless, unable to control him. In order to calm down the patient I have to ordered 5 mg of Haldol and 2 mg of Ativan IV stat. Collateral information from his mother and has a girlfriend is obtained. They say that the patient has been disappear for 3 days. They did not know where he was. They are unsure if the patient tried to commit suicide with his overdose. His mother say that the patient is bipolar, but he has been depressed and he has been using drugs in order to treat his depression. Mother reports that the patient is very violent, but he has been in senior care multiple times, but he is a fighter, could be physically aggressive if he gets confronted. The mother does not feel comfortable with the patient leaving AMA. She is very focused in getting the patient admitted in psychiatry once the patient is medically stable. Girlfriend says that she was unaware of patient's use of drugs. She seems to be very distraught of for what is happening right now. PPHx: Reported bipolar disorder, but no previous psychiatric admissions, no previous suicide attempts, he has been psychotropics in the past, but the patient has not been compliance. PMHx: No medical history Family Hx: Patient has an aunt with bipolar disease Substance Hx: Patient uses methamphetamines, cocaine, alcohol and cannabis basically every day, he also has been abusing opiates, he is on Suboxone, unknown dose Social Hx: The patient lives in [facility] [place] with his mother, he has a girlfriend, is unemployed, multiple incarcerations, Review of Systems All other systems reviewed negative except as stated in HPI Constitutional: Denies anorexia, Denies body ache(s), Denies chills, Denies daytime sleepiness, Denies excessive sweating, Denies fatigue, Denies fever(s), Denies headache(s), Denies increased appetite, Denies lack of energy, Denies malaise, Denies night sweats, Denies weakness, Denies weight gain, Denies weight loss, Denies other Cardiovascular: Reports chest pain, Denies chest pain at rest, Denies chest pain with activity, Denies excessive sweating, Denies fainting, Denies fast heart rate, Denies foot swelling, Denies generalized swelling, Denies irregular heart rhythm, Denies leg pain with activity, Denies leg sores, Denies leg swelling, Denies lightheadedness, Denies radiating jaw, neck or arm pain, Denies rapid, pounding, or irregular heartbeat, Denies shortness of breath, Denies shortness of breath with activity, Denies shortness of breath when lying down, Denies shortness of breath causing sudden awakening, Denies slow heart rate, Denies other Respiratory: Denies change in phlegm color, Denies chest congestion, Denies cough, Denies coughing up blood, Denies excessive phlegm production, Denies pain on inspiration, Denies pain with cough, Denies shortness of breath, Denies shortness of breath with activity, Denies snoring, Denies stridor, Denies wheezing, Denies other Gastrointestinal: Denies abdominal pain, Denies belching, Denies black, tarry stools, Denies bloating, Denies bright, red blood in stools, Denies change in bowel habits, Denies constant urge to pass stool, Denies change in stools, Denies coffee ground vomit, Denies constipation, Denies cramping, Denies difficulty swallowing, Denies excessive passing of gas, Denies feeling full early, Denies heartburn, Denies incontinent of stools, Denies loose stools, Denies nausea, Denies pain with swallowing, Denies vomiting, Denies vomiting blood, Denies other Musculoskeletal: Denies abnormal walking, Denies back pain, Denies body aches, Denies decreased muscle mass, Denies deformity, Denies joint pain, Denies joint swelling, Denies limited joint movement, Denies loss of height, Denies muscle cramps, Denies muscle weakness, Denies neck pain, Denies numbness, Denies radiating pain into limb, Denies stiffness, Denies tingling, Denies other Neurologic: Reports behavioral changes, Reports confusion, Reports memory loss, Denies abnormal hearing, Denies abnormal movements, Denies abnormal speech, Denies abnormal walking, Denies burning sensations, Denies dizziness, Denies fainting, Denies frequent falls, Denies headache(s), Denies lack of coordination , Denies localized weakness, Denies loss of vision, Denies numbness, Denies other visual disturbances, Denies radiating pain, Denies restless legs, Denies convulsions, Denies seizure-like activity, Denies sensory deficit, Denies tingling, Denies tingling/numbness/burning sensations, Denies tremor(s), Denies unsteadiness, Denies weakness, Denies other Psychiatric: Reports confusion, Reports irritability, Reports paranoia, Denies abnormal sleep pattern, Denies anxiety, Denies behavioral changes, Denies change in appetite, Denies change in sex drive, Denies depression, Denies difficulty concentrating, Denies hearing things others do not hear, Denies hopelessness, Denies lack of enjoyment, Denies memory loss, Denies mood swings, Denies panic attacks, Denies seeing things others do not see, Denies sensing things others do not sense, Denies tactile hallucinations, Denies thoughts of hurting/killing others, Denies thoughts of hurting/killing yourself, Denies other [facility] - History History Provided By: Friend - Medical History Medical History: Medical History (Last Reviewed 04/18/18 @ 07:59 by Magnus Gunter) Medical history unknown Surgical history unknown - Tobacco History Tobacco Use In Past 30 Days: Yes Smoking Status: Current every day smoker Tobacco Type: Cigarettes - Alcohol History How Often Do You Have a Drink Containing Alcohol: Unable to Obtain - Substance Use History Substance History: Active Abuse Medications and Allergies Active Medications: Active Medications Acetaminophen (Tylenol) 650 mg PO Q6H PRN PRN Reason: PAIN 1-10 AND/OR FEVER >101F Al Hydroxide/Mg Hydroxide (Milk Of Andria Stoddard) 30 ml PO Q12H PRN PRN Reason: Mild Constipation Albuterol (Duoneb Neb (Prn)) 1 ampul NEB Q2HR NEB PRN PRN Reason: WHEEZING Bisacodyl (Dulcolax Supp) 10 mg RECTAL DAILY PRN PRN Reason: SEVERE CONSITIPATION Chlorhexidine Gluconate (Peridex 0.12% Oral Kit) 15 ml OROPHARYNG BID@0800, 2000 [facility] Last Admin: 04/17/18 08:19 Dose: 15 ml Chlorhexidine Gluconate (Chlorhexidine 2% Cloth) 3 pack TOPICAL DAILY@0400 [facility] Stop: 04/21/18 03:59 Last Admin: 04/17/18 04:52 Dose: 3 pack Chlorhexidine Gluconate (Chlorhexidine 2% Cloth) 3 pack TOPICAL DAILY@0400 PRN PRN Reason: Extra cloth needed Stop: 04/21/18 03:59 Dextrose (D50w Vial) 50 ml IV.PUSH UNSCH PRN PRN Reason: PER HYPOGLYCEMIA PROTOCOL Famotidine (Pepcid Pf Inj) 20 mg IV.PUSH Q12HR [facility] Last Admin: 04/17/18 08:20 Dose: 20 mg Glucagon (Glucagon Inj) 1 mg OTHER PRN PRN PRN Reason: for Hypoglycemia Protocol Haloperidol Lactate (Haldol Inj) 2 mg IV.PUSH Q6H PRN PRN Reason: AGITATION AND/OR HALLUCINATION Last Admin: 04/17/18 15:20 Dose: 2 mg Heparin Sodium (Porcine) (Heparin Inj) 5,000 units SQ Q8H [facility] Last Admin: 04/17/18 06:05 Dose: 5,000 units Fentanyl (Fentanyl 10 Mcg/Ml Premix Drip) 2,500 mcg in 250 mls @ 5 mls/hr IV.SIG TITRATE PRN; Protocol PRN Reason: Per Protocol Midazolam HCl (Versed Inj) 100 mg in 100 mls @ 2 mls/hr IV.CONT TITRATE PRN; Protocol PRN Reason: See protocol Last Titration: 04/17/18 12:42 Dose: 0 mg/hr, 0 mls/hr Propofol (Diprivan 1000 Mg/100 Ml Inj) 1,000 mg in 100 mls @ 2.37 mls/hr IV.CONT TITRATE PRN; Protocol PRN Reason: Per Protocol Last Admin: 04/17/18 13:15 Dose: 40 mcg/kg/min, 18.96 mls/hr Magnesium Sulfate 4 gm/ Sodium (Chloride) 100 mls @ 50 mls/hr IV.SIG UNSCH PRN PRN Reason: For Magnesium 0.9 - 1.1 mg/dL Magnesium Sulfate 2 gm/ Sodium (Chloride) 100 mls @ 50 mls/hr IV.SIG UNSCH PRN PRN Reason: For Magnesium 1.2 - 1.6 mg/dL Potassium Chloride (Kcl 40 Meq Premix Inj) 40 meq in 100 mls @ 25 mls/hr IV.SIG Q2H PRN PRN Reason: For Potassium 2.8 - 3.2 mEq/L Potassium Chloride (Kcl 20 Meq Premix Inj) 20 meq in 100 mls @ 50 mls/hr IV.SIG Q2H PRN PRN Reason: For Potassium 3.3 - 3.5 mEq/L Potassium Chloride (Kcl 40 Meq Premix Inj) 40 meq in 100 mls @ 25 mls/hr IV.SIG UNSCH PRN PRN Reason: For Potassium 3.3 - 3.5 mEq/L Potassium Chloride (Kcl 20 Meq Premix Inj) 20 meq in 100 mls @ 50 mls/hr IV.SIG Q2H PRN PRN Reason: For Potassium 2.8 - 3.2 mEq/L Potassium Phosphate 30 mmol/ (Sodium Chloride) 260 mls @ 42 mls/hr IV.SIG UNSCH PRN PRN Reason: SEE LABEL COMMENTS Last Admin: 04/17/18 08:42 Dose: 42 mls/hr Sodium Phosphate 30 mmol/ (Sodium Chloride) 260 mls @ 42 mls/hr IV.SIG UNSCH PRN PRN Reason: For Phosphorus < 2.5 mg/dL Lactated Ringer's (Lr 1000 Ml Inj) 1,000 mls @ 125 mls/hr IV.CONT .Q8H [facility] Last Admin: 04/17/18 11:24 Dose: 125 mls/hr Dexmedetomidine HCl 200 mcg/ (Sodium Chloride) 50 mls @ 4.35 mls/hr IV.CONT TITRATE PRN; Protocol PRN Reason: Per Protocol Last Admin: 04/17/18 15:10 Dose: 1.5 mcg/kg/hr, 32.62 mls/hr Insulin Aspart (Novolog Insulin Correctional Sugar Inj) 0 unit SQ Q6HR [facility]; Protocol Last Admin: 04/17/18 14:34 Dose: Not Given Lactulose (Lactulose Liq) 30 ml PO DAILY PRN PRN Reason: SEVERE CONSITIPATION Magnesium Oxide (Mag-Ox) 800 mg PO UNSCH PRN PRN Reason: For Magnesium 1.2 - 1.6 mg/dL Midazolam HCl (Versed Inj) 2 mg IV.PUSH Q1H PRN PRN Reason: SEDATION Miscellaneous Medication () 1 each OROPHARYNG 0000,0400,1200,1600 [facility] Last Admin: 04/17/18 15:27 Dose: Not Given Morphine Sulfate (Morphine Inj) 2 mg IV.PUSH Q2H PRN PRN Reason: PAIN SCALE 6 TO 10 Ondansetron HCl (Zofran Inj) 4 mg IV.PUSH Q6H PRN PRN Reason: NAUSEA OR VOMITING Potassium Chloride (Kcl Liq) 40 meq PO UNSCH PRN PRN Reason: Potassium level 3.3-3.5 mEq/L Last Admin: 04/16/18 13:46 Dose: 40 meq Potassium Chloride (Kcl Liq) 40 meq PO UNSCH PRN PRN Reason: POTASSIUM LESS THAN 3.5 Potassium Phosphate (K-Phos Original) 2,000 mg PO UNSCH PRN PRN Reason: SEE LABEL COMMENTS Potassium Phosphate (K-Phos Original) 2,000 mg PO Q4H PRN PRN Reason: Phosphorus Less Than 2.5 mg/dL Senna/Docusate Sodium (Rika-Colace) 1 tab PO BID [facility] Last Admin: 04/17/18 08:20 Dose: 1 tab Sennosides (Senokot) 17.2 mg PO Q12H PRN PRN Reason: Moderate Constipation Sodium Chloride (Ns Flush) 2 ml IV.FLUSH BID [facility] Last Admin: 04/17/18 08:19 Dose: 2 ml Sodium Chloride (Ns Flush) 2 ml IV.FLUSH PRN PRN PRN Reason: FLUSH AFTER USING IV ACCESS Last Admin: 04/16/18 08:15 Dose: 2 ml Allergies Allergy/AdvReac Type Severity Reaction Status Date / Time No Known Allergies Allergy Verified 04/15/18 17:49 Home Medications Medication Instructions Recorded Confirmed Type Unable to Obtain Home Meds 04/15/18 04/15/18 History Exam Vital signs: Vital Signs 04/16/18 16:00 04/16/18 17:00 04/16/18 18:00 Temperature 98.8 F 98.2 F 98.1 F Pulse Rate 80 74 71 Respiratory Rate 12 12 12 Blood Pressure 132/81 136/82 139/85 Pulse Oximetry 99 99 99 04/16/18 19:00 04/16/18 20:00 04/16/18 21:00 Temperature 98.4 F 98.4 F 98.4 F Pulse Rate 71 73 73 Respiratory Rate 12 12 12 Blood Pressure 132/82 134/81 136/84 Pulse Oximetry 99 99 99 04/16/18 21:51 04/16/18 22:00 04/16/18 23:00 Temperature 98.4 F 98.4 F Pulse Rate 74 70 Respiratory Rate 12 12 12 Blood Pressure 137/85 138/84 Pulse Oximetry 100 99 99 04/17/18 00:00 04/17/18 00:57 04/17/18 01:00 Temperature 98.4 F 98.4 F Pulse Rate 70 68 Respiratory Rate 12 12 12 Blood Pressure 137/86 137/86 Pulse Oximetry 99 99 99 04/17/18 02:00 04/17/18 03:00 04/17/18 04:00 Temperature 98.4 F 98.6 F 98.6 F Pulse Rate 66 65 64 Respiratory Rate 12 12 12 Blood Pressure 141/88 H 142/90 H 137/89 Pulse Oximetry 99 99 99 04/17/18 05:00 04/17/18 06:00 04/17/18 08:00 Temperature 98.6 F 98.6 F Pulse Rate 64 67 74 Respiratory Rate 12 12 Blood Pressure 141/89 H 136/84 Pulse Oximetry 98 99 04/17/18 08:48 04/17/18 10:00 04/17/18 11:58 Temperature Pulse Rate 74 Respiratory Rate 13 26 H Blood Pressure Pulse Oximetry 99 100 04/17/18 12:00 04/17/18 13:00 Temperature 100.0 F H Pulse Rate 93 H 85 Respiratory Rate 32 H 39 H Blood Pressure 147/87 H Pulse Oximetry 100 99 Intake & Output 04/16/18 04/17/18 04/17/18 18:59 06:59 18:59 Intake Total 3042 / 3042 3828 / 3828 1200 / 1200 Output Total 3700 / 3700 2200 / 2200 Balance -658 / -658 1628 / 1628 1200 / 1200 Weight 87 kg Intake: IV 2375 / 2375 3300 / 3300 1200 / 1200 Precedex Inj 200 MCG In NS Inj 100 / 100 48 ML @ 0.2 MCG/KG/HR 4.35 mls/ hr IV.CONT TITRATE PRN Rx#: [id number] Versed Inj 100 mg In 100 ml @ 2 75 / 75 100 / 100 MG/HR 2 mls/hr IV.CONT TITRATE PRN Rx#:[id number] Diprivan 1000 mg/100 ml Inj 1, 300 / 300 300 / 300 200 / 200 000 mg In 100 ml @ 5 MCG/KG/MIN 2.37 mls/hr IV.CONT TITRATE PRN Rx#:[id number] NS Inj 1,000 ML @ 200 mls/hr IV 1999 / 1999 3000 / 3000 800 / 800 .CONT .Q5H PA Rx#:[id number] Tube Feeding 547 / 547 468 / 468 Tube Irrigant 120 / 120 60 / 60 Output: Urine Amount (Catheter) 3700 / 3700 2200 / 2200 Indwelling Urethral Catheter 3700 / 3700 2200 / 2200 Mental Status Examination Appearance: Dirty, Disheveled Consciousness: Alert Orientation: Person Speech: Unremarkable Language: Adequate Fund of Knowledge: Inadequate Memory: Impaired Mood: Angry Affect: Irritable, Other (euphoric) Thought Process & Associations: Loose associations, Disorganized, Tangential Thought Content: Bizarre thinking, Compulsive Hallucination Type: None Delusion Type: Bizarre, Paranoid Suicidal Ideation: Yes Suicidal Plan: No Suicidal Intention: No Homicidal Ideation: No Homicidal Plan: No Homicidal Intention: No Insight: Poor Judgment: Poor Assessment and Plan - Assessment (1) Unspecified psychosis Code(s): F29 - Unspecified psychosis not due to a substance or known physiological condition Status: Acute (2) Polysubstance dependence Code(s): F19.20 - Other psychoactive substance dependence, uncomplicated Status: Acute - Plan Plan: Almost the Evaluation today the patient presents acutely Psychotic, increased paranoia, disorganized and tangential thought process, agitated and aggressive. 4 points restrains. Patient has tried to commit suicide by overdosing with multiple drugs. Unable to be deescalated verbally, persistently requesting to be discharge. Disoriented, unable to express understanding, appreciation and rto manage information rationally at this time. No decision making capacity to leave AMA. Will order Haldol 5 mg iv now, Ativan 2 mg iv now. QTc is 404 Haldol 5 mg IM and Ativan PRN Q/6 severe agitation and aggressiveness CIWA protocol to protect patient from Withdrawal Autonomic instability cold be related with underline medical conditions, but also opiates withdrawal. Mother and girlfriend state patient is bipolar, raised question of a potential suicidal attempt. He is rutledge acted. No capacitated. will be transfer to [facility] once medically stable. I will follow up. Justification for Continued Inpatient Stay: For psychiatric admission
[2018-04-17] MEDS ORDERED: Haloperidol Inj 5 MG/ML Ampul IV.PUSH ONE (17:37)
[2018-04-17] MEDS: Dexmedetomidine Inj 1,000 MCG in Sodium Chlor 0.9% Inj 240 ML IV.CONT PRN (22:27)
[2018-04-18] MEDS: Insulin NovoLOG Aspart Correctional Sugar Inj SQ SCH ×3 (01:09→12:13)
[2018-04-18] MEDS: Oral Hygiene Kit OROPHARYNG SCH ×4 (01:09→16:23)
[2018-04-18] MEDS: Chlorhexidine Gluconate 2% 1 Pack (2 Cloths) TOPICAL SCH (03:56)
[2018-04-18 04:26] LABS: Baso % (Auto) 0.4 % (0.0-2.0); Eos # (Auto) 0.1 th/mm3 (0.0-0.4); Eos % (Auto) 1.6 % (0.0-4.0); Hemoglobin 15.7 gm/dL (13.0-17.0); Lymph # (Auto) 1.4 th/mm3 (1.0-4.8); Lymph % (Auto) 15.3 % (9.0-44.0); Mean Corpuscular HGB Conc 34.2 % (32.0-36.0); Mean Corpuscular Hemoglobin 30.6 pg (27.0-34.0); Mean Corpuscular Volume 89.6 fL (80.0-100.0); Mean Platelet Volume 9.3 fL (7.0-11.0); Mono # (Auto) 0.6 th/mm3 (0.0-0.9); Mono % (Auto) 7.1 % (0.0-8.0); Neut # (Auto) 6.8 th/mm3 (1.8-7.7); Neut % (Auto) 75.6 % (16.0-70.0); Platelet Count 131 th/mm3 (150-450); Red Blood Count 5.14 mil/mm3 (4.50-5.90); Red Cell Distribution Width 14.5 % (11.6-17.2)
[2018-04-18 04:33] LABS: INR 1.1 Ratio; Prothrombin Time 11.4 sec (9.8-11.6)
[2018-04-18 04:50] LABS: Albumin 3.4 g/dL (3.4-5.0); Anion Gap 7 meq/L (5-15); Aspartate Aminotransferase 118 U/L (15-37); Blood Urea Nitrogen 9 mg/dL (7-18); Calcium 9.1 mg/dL (8.5-10.1); Carbon Dioxide 28.8 meq/L (21.0-32.0); Chloride 108 meq/L (98-107); Glomerular Filtration Rate Greater Than 89 mL/min (>89); Glucose,Random 102 mg/dL (74-106); Magnesium 1.9 mg/dL (1.5-2.5); Phosphorus 2.9 mg/dL (2.5-4.9); Potassium 3.9 meq/L (3.5-5.1); Sodium 144 meq/L (136-145)
[2018-04-18 05:05] LABS: Alanine Aminotransferase 84 U/L (12-78); Alkaline Phosphatase 74 U/L (45-117); Creatine Kinase 1761 U/L (39-308); Total Protein 7.1 g/dL (6.4-8.2)
[2018-04-18 05:23] LABS: CKMB Percent 0.4 % (0.0-4.0); Creatine Kinase MB 7.2 ng/mL (0.5-3.6)
[2018-04-18] MEDS: Dexmedetomidine Inj 1,000 MCG in Sodium Chlor 0.9% Inj 240 ML IV.CONT PRN (06:25)
--- NOTE | 2018-04-18 06:30 | XR ---
EXAM DATE: 04/18/2018 6:26 AM EST AGE/SEX: 38 years / Male INDICATIONS: Shortness of breath, possible pulmonary disease. CLINICAL DATA: This is the patient's subsequent encounter. Patient reports that signs and symptoms h ave been present for 4 - 6 days and indicates a pain score of Nonresponsive. MEDICAL/SURGICAL HISTORY: Non-responsive. Non-responsive. COMPARISON: [facility], CHEST 1V SINGLE AP, 04/17/2018. . FINDINGS: Interval extubation and removal of nasogastric tube. No focal infiltrate or effusion. Cardiac contour s are unchanged. CONCLUSION: Patient extubated. No focal lung disease Electronically signed by: Maverick Mckinnon MD Board Certified Radiologist 04/18/2018 6:29 AM EST
[2018-04-18] MEDS: Chlorhexidine 0.12% Oral Kit 15 ML UDC OROPHARYNG SCH ×2 (08:38→20:52)
[2018-04-18] MEDS: Senna/Docusate Sodium 8.6/50 MG Tablet PO SCH (08:39)
[2018-04-18] MEDS: Famotidine PF Inj 20 MG/2 ML Vial IV.PUSH SCH ×2 (08:39→20:51)
--- NOTE | 2018-04-18 11:28 | P.PNPSY ---
Subjective Remarks: The patient was seen today for psychiatric reevaluation. Mother is at bedside. I have communicated with nurse in charge, and also with critical care doctor. The patient is a little bit sedated, poorly cooperative, he is able to tell me that he feels better. He is minimally alert, oriented in person, oriented in place, disoriented in time. Once he opens his eyes start asking to be discharged. He verbalized that he has not overdose with suicide intentions, but to get high. At this moment he denies suicidal or homicidal ideation, he denies visual hallucinations. The patient has been periodically agitated, aggressive, demanding to be discharged. Mental Status Examination Appearance: Dirty, Disheveled Consciousness: Alert Orientation: Person Speech: Unremarkable Language: Adequate Fund of Knowledge: Inadequate Memory: Impaired Mood: Angry Affect: Irritable, Other (euphoric) Thought Process & Associations: Loose associations, Disorganized, Tangential Thought Content: Bizarre thinking, Compulsive Hallucination Type: None Delusion Type: Bizarre, Paranoid Suicidal Ideation: Yes Suicidal Plan: No Suicidal Intention: No Homicidal Ideation: No Homicidal Plan: No Homicidal Intention: No Insight: Poor Judgment: Poor Assessment and Plan - Assessment (1) Unspecified psychosis Code(s): F29 - Unspecified psychosis not due to a substance or known physiological condition Status: Acute (2) Polysubstance dependence Code(s): F19.20 - Other psychoactive substance dependence, uncomplicated Status: Acute - Plan Plan: Continue on the Denis act. Unreliable historian, disorganized, disoriented. Quite unclear if overdose was with suicidal intentions. Continue medical workup. Continue current psychotropic regimen. Justification for Continued Inpatient Stay: To be admitted and the catheter was medically stable.
--- NOTE | 2018-04-18 13:28 | P.PNCC ---
Subjective Subjective Remarks/Hospital Course: 04/16: Afebrile . The patient remains intubated and sedated. IV fluids currently at 184 cc/hr. initial CK was noted to be >800. Family at bedside all questions answered. 04/17: Patient continues on sedation, daily sedation vacation attempted patient became very agitated and combative. Plan for initiation of Precedex infusion and discontinuation or minimization of propofol and Versed to initiate CPAP trials today. Urine output adequate creatinine 1.1 today. Hepatitis panel revealed positive for hepatitis C. family at bedside medical status update provided. 04/18: Patient successfully extubated yesterday . The patient became combative aggressive required four-point leather restraints. Haldol medication increased , patient continues on Precedex infusion. CIWA protocol added to medication regimen Objective Vital Signs / I&O: Vital Signs 04/17/18 14:00 04/17/18 16:00 04/17/18 18:00 Temperature Pulse Rate 88 86 60 Respiratory Rate 20 Blood Pressure 160/89 H Pulse Oximetry 100 04/17/18 20:00 04/17/18 22:00 04/18/18 00:00 Temperature 99 F 98.9 F Pulse Rate 65 66 69 Respiratory Rate 20 20 Blood Pressure 157/96 H 166/104 H Pulse Oximetry 100 100 04/18/18 02:00 04/18/18 04:00 04/18/18 06:00 Temperature 98.9 F Pulse Rate 62 55 L 58 L Respiratory Rate 20 Blood Pressure 155/98 H Pulse Oximetry 100 Intake & Output 04/17/18 04/18/18 04/18/18 18:59 06:59 18:59 Intake Total 1610 / 1610 2300 / 2300 1000 / 1000 Output Total 1750 / 1750 4200 / 4200 Balance -140 / -140 -1900 / -1900 1000 / 1000 Weight 84.5 kg Intake: IV 1610 / 1610 2300 / 2300 1000 / 1000 Precedex Inj 1,000 MCG In NS 250 / 250 Inj 240 ML @ 0.2 MCG/KG/HR 4.35 mls/hr IV.CONT TITRATE PRN Rx# :[id number] Precedex Inj 200 MCG In NS Inj 150 / 150 50 / 50 48 ML @ 0.2 MCG/KG/HR 4.35 mls/ hr IV.CONT TITRATE PRN Rx#: [id number] LR 1000 mL Inj 1,000 ML @ 125 2000 / 2000 1000 / 1000 mls/hr IV.CONT .Q8H PA Rx#: [id number] Versed Inj 100 mg In 100 ml @ 2 100 / 100 MG/HR 2 mls/hr IV.CONT TITRATE PRN Rx#:[id number] Diprivan 1000 mg/100 ml Inj 1, 200 / 200 000 mg In 100 ml @ 5 MCG/KG/MIN 2.37 mls/hr IV.CONT TITRATE PRN Rx#:[id number] NS Inj 1,000 ML @ 200 mls/hr IV 800 / 800 .CONT .Q5H PA Rx#:[id number] Ofirmev Inj 1,000 mg In 100 ml 100 / 100 @ 400 mls/hr IV.SIG ONCE ONE Rx #:[id number] Potassium Phosphate Inj 30 MMOL 260 / 260 In NS Inj 250 ML @ 42 mls/hr IV.SIG UNSCH PRN Rx#:[id number] Output: Urine Amount (Catheter) 1750 / 1750 4200 / 4200 Indwelling Urethral Catheter 1750 / 1750 4200 / 4200 Other: # Bowel Movements 0 0 Result Diagrams: 04/18/18 03:56 04/18/18 03:56 Other Results: Laboratory Results WBC 9.0 th/mm3 (4.0-11.0) 04/18/18 03:56 RBC 5.14 mil/mm3 (4.50-5.90) 04/18/18 03:56 Hgb 15.7 gm/dL (13.0-17.0) 04/18/18 03:56 Hct 46.0 % (39.0-51.0) 04/18/18 03:56 MCV 89.6 fL (80.0-100.0) 04/18/18 03:56 MCH 30.6 pg (27.0-34.0) 04/18/18 03:56 MCHC 34.2 % (32.0-36.0) 04/18/18 03:56 RDW 14.5 % (11.6-17.2) 04/18/18 03:56 Plt Count 131 th/mm3 (150-450) L 04/18/18 03:56 MPV 9.3 fL (7.0-11.0) 04/18/18 03:56 Neut % (Auto) 75.6 % (16.0-70.0) H 04/18/18 03:56 Lymph % (Auto) 15.3 % (9.0-44.0) 04/18/18 03:56 Marshall % (Auto) 7.1 % (0.0-8.0) 04/18/18 03:56 Eos % (Auto) 1.6 % (0.0-4.0) 04/18/18 03:56 Baso % (Auto) 0.4 % (0.0-2.0) 04/18/18 03:56 Neut # (Auto) 6.8 th/mm3 (1.8-7.7) 04/18/18 03:56 Lymph # (Auto) 1.4 th/mm3 (1.0-4.8) 04/18/18 03:56 Marshall # (Auto) 0.6 th/mm3 (0.0-0.9) 04/18/18 03:56 Eos # (Auto) 0.1 th/mm3 (0.0-0.4) 04/18/18 03:56 Baso # (Auto) 0.0 th/mm3 (0.0-0.2) 04/18/18 03:56 WBC Differential . 04/18/18 03:56 Differential Comment Auto diff final 04/18/18 03:56 PT 11.4 sec (9.8-11.6) 04/18/18 03:56 INR 1.1 Ratio 04/18/18 03:56 APTT 27.5 sec (23.4-31.7) 04/16/18 03:49 Puncture Site Right radial 04/16/18 12:20 Patient Temperature 98.6 04/16/18 12:20 O2 Saturation 97 % (90-100) 04/16/18 12:20 ABG pH 7.41 (7.380-7.420) 04/16/18 12:20 ABG pCO2 35 mmHg (38-42) L 04/16/18 12:20 ABG pO2 183 mmHG (61-120) H 04/16/18 12:20 ABG HCO3 22 mmol/L (22-26) 04/16/18 12:20 ABG O2 Content 19.5 Vol % (12.0-20.0) 04/16/18 12:20 ABG Base Excess -2.0 mmol/L (-2-2) 04/16/18 12:20 ABG Methemoglobin 1.6 % (0-2) 04/16/18 12:20 Emiliano Test Present 04/16/18 12:20 Hemoglobin 14.1 G/DL (12.0-16.0) 04/16/18 12:20 Carboxyhemoglobin 0.7 % (0-4) 04/16/18 12:20 O2 Delivery Device Ventilator 04/16/18 12:20 Vent Setting See comments 04/16/18 12:20 Inspired O2 35 % 04/16/18 12:20 Critical Value No 04/16/18 12:20 Sodium 144 meq/L (136-145) 04/18/18 03:56 Potassium 3.9 meq/L (3.5-5.1) 04/18/18 03:56 Chloride 108 meq/L (98-107) H D 04/18/18 03:56 Carbon Dioxide 28.8 meq/L (21.0-32.0) 04/18/18 03:56 Anion Gap 7 meq/L (5-15) 04/18/18 03:56 BUN 9 mg/dL (7-18) 04/18/18 03:56 Creatinine 0.91 mg/dL (0.60-1.30) 04/18/18 03:56 Estimated GFR Greater than 89 mL/min (>89) 04/18/18 03:56 POC Glucose 94 mg/dl (68-110) 04/18/18 03:54 Random Glucose 102 mg/dL (74-106) 04/18/18 03:56 Calcium 9.1 mg/dL (8.5-10.1) D 04/18/18 03:56 Phosphorus 2.9 mg/dL (2.5-4.9) D 04/18/18 03:56 Magnesium 1.9 mg/dL (1.5-2.5) 04/18/18 03:56 Total Bilirubin 1.1 mg/dL (0.2-1.0) H 04/18/18 03:56 Direct Bilirubin 0.2 mg/dL (0.0-0.2) 04/17/18 03:56 Indirect Bilirubin 0.2 mg/dL (0.0-0.8) 04/17/18 03:56 AST 118 U/L (15-37) H 04/18/18 03:56 ALT 84 U/L (12-78) H 04/18/18 03:56 Alkaline Phosphatase 74 U/L (45-117) 04/18/18 03:56 Total Creatine Kinase 1761 U/L (39-308) H 04/18/18 03:56 CK-MB (CK-2) 7.2 ng/mL (0.5-3.6) H 04/18/18 03:56 CK-MB (CK-2) % 0.4 % (0.0-4.0) 04/18/18 03:56 Total Protein 7.1 g/dL (6.4-8.2) D 04/18/18 03:56 Albumin 3.4 g/dL (3.4-5.0) 04/18/18 03:56 Nasal Screen MRSA (PCR) Not detected (Negative) 04/15/18 22:15 Salicylates Less than 1.7 mg/dL (2.8-20.0) L 04/16/18 14:00 Acetaminophen Less than 2.0 mcg/mL (10.0-30.0) L 04/16/18 14:00 Hepatitis A IgM Ab Nonreactive (Nonreactive) 04/17/18 03:56 Hep Bs Antigen Nonreactive (Nonreactive) 04/17/18 03:56 Hep B Core IgM Ab Nonreactive (Nonreactive) 04/17/18 03:56 Hep C IgG Ab Reactive (Nonreactive) H 04/17/18 03:56 Impressions Chest X-Ray 04/18/18 04:00 CONCLUSION: Patient extubated. No focal lung disease Objective Remarks: GENERAL: Is a well-developed well-nourished male sedated and intubated. SKIN: Warm and dry. HEAD: Atraumatic. Normocephalic. EYES: Pupils equal and round. No scleral icterus. No injection or drainage. ENT: No nasal bleeding or discharge. Mucous membranes pink and moist. NECK: Trachea midline. No JVD. CARDIOVASCULAR: Normal rate, regular rhythm. RESPIRATORY: No accessory muscle use. Clear to auscultation. Breath sounds equal bilaterally. GASTROINTESTINAL: Abdomen soft, non-tender, nondistended. No guarding. MUSCULOSKELETAL: Extremities without clubbing, cyanosis, or edema. No obvious deformities. NEUROLOGICAL: Sedated currently on Versed and Propofol .RASS -2. No gross focal/sensory deficits. Follows commands in all 4 extremities. Assessment and Plan - Assessment and Plan Plan: Respiratory failure-resolved -Intubated for an airway protection -Initiate daily sedation vacation, use Precedex to transition -No weaning until neurologically improved -Vent bundle -DuoNeb's as needed -Continue CPAP trials Amphetamine intoxication Psychotic ETOH Use Disorder -Continue Precedex infusion for -Change IV fluids to LR at 125/now -Monitor for withdrawal -Sedation vacation daily -Salicylate and Tylenol levels low -CIWA protocol added to medication regimen - Psychiatry following - Denis Act Acute kidney injury Rhabdomyolysis -Severe dehydration-resolved -Strict I's and O's -IV fluid hydration -Monitor electrolytes and creatinine levels -Trend creatinine kinase _ Continue LR 150cc/hr Transaminitis Hepatitis C -Likely due to drug overdose -Monitor trend and watch for coagulopathy -Obtain INR in a.m. -Hepatitis C positive Fever-resolved -With tachycardia -Due to methamphetamine intoxication -No antibiotics at this time DVT GI prophylaxis -Teds SCDs -Subcu heparin -Pepcid Level 3 followup
[2018-04-18] MEDS ORDERED: Dexmedetomidine Inj 1,000 MCG in Sodium Chlor 0.9% Inj 240 ML IV.CONT PRN (18:03)
[2018-04-19] MEDS: Oral Hygiene Kit OROPHARYNG SCH ×4 (04:09→17:13)
[2018-04-19] MEDS: Chlorhexidine Gluconate 2% 1 Pack (2 Cloths) TOPICAL SCH (04:10)
[2018-04-19] MEDS: Senna/Docusate Sodium 8.6/50 MG Tablet PO SCH ×3 (04:10→20:52)
[2018-04-19] MEDS: LORazepam 1 MG Tablet PO PRN (06:35)
[2018-04-19 07:40] LABS: Anion Gap 8 meq/L (5-15); Blood Urea Nitrogen 10 mg/dL (7-18); Calcium 8.7 mg/dL (8.5-10.1); Carbon Dioxide 27.4 meq/L (21.0-32.0); Chloride 105 meq/L (98-107); Glomerular Filtration Rate Greater Than 89 mL/min (>89); Glucose,Random 90 mg/dL (74-106); Magnesium 1.9 mg/dL (1.5-2.5); Phosphorus 2.9 mg/dL (2.5-4.9); Potassium 3.8 meq/L (3.5-5.1); Sodium 140 meq/L (136-145)
[2018-04-19 07:42] LABS: Baso % (Auto) 0.5 % (0.0-2.0); Creatine Kinase 599 U/L (39-308); Eos # (Auto) 0.2 th/mm3 (0.0-0.4); Eos % (Auto) 2.5 % (0.0-4.0); Hematocrit 48.7 % (39.0-51.0); Hemoglobin 16.4 gm/dL (13.0-17.0); Lymph # (Auto) 1.6 th/mm3 (1.0-4.8); Lymph % (Auto) 18.3 % (9.0-44.0); Mean Corpuscular HGB Conc 33.6 % (32.0-36.0); Mean Corpuscular Hemoglobin 30.2 pg (27.0-34.0); Mean Corpuscular Volume 89.9 fL (80.0-100.0); Mean Platelet Volume 9.2 fL (7.0-11.0); Mono # (Auto) 0.6 th/mm3 (0.0-0.9); Mono % (Auto) 6.9 % (0.0-8.0); Neut # (Auto) 6.3 th/mm3 (1.8-7.7); Neut % (Auto) 71.8 % (16.0-70.0); Platelet Count 151 th/mm3 (150-450); Red Blood Count 5.41 mil/mm3 (4.50-5.90); Red Cell Distribution Width 14.7 % (11.6-17.2); White Blood Count 8.8 th/mm3 (4.0-11.0)
[2018-04-19 07:59] LABS: CKMB Percent 0.5 % (0.0-4.0); Creatine Kinase MB 2.7 ng/mL (0.5-3.6)
[2018-04-19] MEDS: Heparin - SQ 10,000 UNITS/ML Vial SQ SCH (09:36)
[2018-04-19] MEDS: Famotidine PF Inj 20 MG/2 ML Vial IV.PUSH SCH ×2 (09:40→20:51)
--- NOTE | 2018-04-19 10:34 | P.PNCC ---
Subjective Subjective Remarks/Hospital Course: 04/16: Afebrile . The patient remains intubated and sedated. IV fluids currently at 184 cc/hr. initial CK was noted to be >800. Family at bedside all questions answered. 04/17: Patient continues on sedation, daily sedation vacation attempted patient became very agitated and combative. Plan for initiation of Precedex infusion and discontinuation or minimization of propofol and Versed to initiate CPAP trials today. Urine output adequate creatinine 1.1 today. Hepatitis panel revealed positive for hepatitis C. family at bedside medical status update provided. 04/18: Patient successfully extubated yesterday . The patient became combative aggressive required four-point leather restraints. Haldol medication increased , patient continues on Precedex infusion. CIWA protocol added to medication regimen 04/19: Patient calm and appropriate. Precedex infusion discontinued this a.m. peer patient continues on [place] protocol for withdrawal symptoms. Patient advanced to out of bed to chair today without any difficulties. Creatinine kinase continues to downtrend currently slightly greater than 500. IV fluids decreased to 100 cc an hour. Patient tolerating regular diet. Medical status update provided to family patient's mother at bedside. Objective Vital Signs / I&O: Vital Signs 04/18/18 11:00 04/18/18 12:00 04/18/18 13:00 Temperature 99.0 F Pulse Rate 71 55 L 62 Respiratory Rate 20 22 27 H Blood Pressure 148/94 H 153/96 H 155/94 H Pulse Oximetry 97 99 99 04/18/18 14:00 04/18/18 15:00 04/18/18 16:00 Temperature 98.6 F 98 F Pulse Rate 55 L 58 L 57 L Respiratory Rate 28 H 23 26 H Blood Pressure 155/93 H 146/96 H 151/94 H Pulse Oximetry 99 98 98 04/18/18 17:00 04/18/18 18:00 04/18/18 18:01 Temperature Pulse Rate 54 L 69 69 Respiratory Rate 28 H 23 23 Blood Pressure 142/88 H 138/77 Pulse Oximetry 98 99 99 04/18/18 19:00 04/18/18 20:00 04/18/18 20:01 Temperature 98.5 F Pulse Rate 59 L 59 L 57 L Respiratory Rate 20 21 22 Blood Pressure 139/85 139/85 163/90 H Pulse Oximetry 97 97 98 04/18/18 21:00 04/18/18 22:00 04/18/18 22:27 Temperature Pulse Rate 54 L 95 H 57 L Respiratory Rate 21 29 H 23 Blood Pressure 141/85 H 130/76 Pulse Oximetry 98 100 97 04/18/18 23:00 04/18/18 23:01 04/19/18 00:00 Temperature 98.0 F Pulse Rate 53 L 53 L 74 Respiratory Rate 19 20 20 Blood Pressure 151/83 H 149/73 H Pulse Oximetry 100 100 100 04/19/18 01:00 04/19/18 01:01 04/19/18 02:00 Temperature Pulse Rate 64 59 L 52 L Respiratory Rate 20 19 21 Blood Pressure 135/73 143/82 H Pulse Oximetry 100 100 98 04/19/18 03:00 04/19/18 04:00 04/19/18 05:00 Temperature 98.0 F Pulse Rate 56 L 65 65 Respiratory Rate 20 30 H 21 Blood Pressure 129/77 137/97 H 139/78 Pulse Oximetry 97 100 100 04/19/18 06:00 Temperature Pulse Rate 63 Respiratory Rate 24 Blood Pressure 125/66 Pulse Oximetry 100 Intake & Output 04/18/18 04/19/18 04/19/18 18:59 06:59 18:59 Intake Total 1900 / 1900 205 / 2050 Output Total 2300 / 2300 2900 / 2900 Balance -400 / -400 -850 / -850 Weight 79 kg Intake: IV 1250 / 1250 1999 / 1999 Precedex Inj 1,000 MCG In NS 250 / 250 Inj 240 ML @ 0.2 MCG/KG/HR 4.35 mls/hr IV.CONT TITRATE PRN Rx# :[id number] LR 1000 mL Inj 1,000 ML @ 150 1000 / 1000 2000 / 2000 mls/hr IV.CONT .Q6H40M PA Rx#: [id number] Oral 650 / 650 50 / 50 Output: Urine Amount (Catheter) 2300 / 2300 2900 / 2900 Indwelling Urethral Catheter 2300 / 2300 2900 / 2900 Other: Date of Last Bowel Movement 04/18/18 # Bowel Movements 1 Result Diagrams: 04/19/18 05:05 04/19/18 05:05 Other Results: Laboratory Results WBC 8.8 th/mm3 (4.0-11.0) 04/19/18 05:05 RBC 5.41 mil/mm3 (4.50-5.90) 04/19/18 05:05 Hgb 16.4 gm/dL (13.0-17.0) 04/19/18 05:05 Hct 48.7 % (39.0-51.0) 04/19/18 05:05 MCV 89.9 fL (80.0-100.0) 04/19/18 05:05 MCH 30.2 pg (27.0-34.0) 04/19/18 05:05 MCHC 33.6 % (32.0-36.0) 04/19/18 05:05 RDW 14.7 % (11.6-17.2) 04/19/18 05:05 Plt Count 151 th/mm3 (150-450) 04/19/18 05:05 MPV 9.2 fL (7.0-11.0) 04/19/18 05:05 Neut % (Auto) 71.8 % (16.0-70.0) H 04/19/18 05:05 Lymph % (Auto) 18.3 % (9.0-44.0) 04/19/18 05:05 Garvin % (Auto) 6.9 % (0.0-8.0) 04/19/18 05:05 Eos % (Auto) 2.5 % (0.0-4.0) 04/19/18 05:05 Baso % (Auto) 0.5 % (0.0-2.0) 04/19/18 05:05 Neut # (Auto) 6.3 th/mm3 (1.8-7.7) 04/19/18 05:05 Lymph # (Auto) 1.6 th/mm3 (1.0-4.8) 04/19/18 05:05 Garvin # (Auto) 0.6 th/mm3 (0.0-0.9) 04/19/18 05:05 Eos # (Auto) 0.2 th/mm3 (0.0-0.4) 04/19/18 05:05 Baso # (Auto) 0.0 th/mm3 (0.0-0.2) 04/19/18 05:05 WBC Differential . 04/19/18 05:05 Differential Comment Auto diff final 04/19/18 05:05 PT 11.4 sec (9.8-11.6) 04/18/18 03:56 INR 1.1 Ratio 04/18/18 03:56 APTT 27.5 sec (23.4-31.7) 04/16/18 03:49 Puncture Site Right radial 04/16/18 12:20 Patient Temperature 98.6 04/16/18 12:20 O2 Saturation 97 % (90-100) 04/16/18 12:20 ABG pH 7.41 (7.380-7.420) 04/16/18 12:20 ABG pCO2 35 mmHg (38-42) L 04/16/18 12:20 ABG pO2 183 mmHG (61-120) H 04/16/18 12:20 ABG HCO3 22 mmol/L (22-26) 04/16/18 12:20 ABG O2 Content 19.5 Vol % (12.0-20.0) 04/16/18 12:20 ABG Base Excess -2.0 mmol/L (-2-2) 04/16/18 12:20 ABG Methemoglobin 1.6 % (0-2) 04/16/18 12:20 Emiliano Test Present 04/16/18 12:20 Hemoglobin 14.1 G/DL (12.0-16.0) 04/16/18 12:20 Carboxyhemoglobin 0.7 % (0-4) 04/16/18 12:20 O2 Delivery Device Ventilator 04/16/18 12:20 Vent Setting See comments 04/16/18 12:20 Inspired O2 35 % 04/16/18 12:20 Critical Value No 04/16/18 12:20 Sodium 140 meq/L (136-145) 04/19/18 05:05 Potassium 3.8 meq/L (3.5-5.1) 04/19/18 05:05 Chloride 105 meq/L (98-107) 04/19/18 05:05 Carbon Dioxide 27.4 meq/L (21.0-32.0) 04/19/18 05:05 Anion Gap 8 meq/L (5-15) 04/19/18 05:05 BUN 10 mg/dL (7-18) 04/19/18 05:05 Creatinine 0.90 mg/dL (0.60-1.30) 04/19/18 05:05 Estimated GFR Greater than 89 mL/min (>89) 04/19/18 05:05 POC Glucose 94 mg/dl (68-110) 04/18/18 03:54 Random Glucose 90 mg/dL (74-106) 04/19/18 05:05 Calcium 8.7 mg/dL (8.5-10.1) 04/19/18 05:05 Phosphorus 2.9 mg/dL (2.5-4.9) 04/19/18 05:05 Magnesium 1.9 mg/dL (1.5-2.5) 04/19/18 05:05 Total Bilirubin 1.1 mg/dL (0.2-1.0) H 04/18/18 03:56 Direct Bilirubin 0.2 mg/dL (0.0-0.2) 04/17/18 03:56 Indirect Bilirubin 0.2 mg/dL (0.0-0.8) 04/17/18 03:56 AST 118 U/L (15-37) H 04/18/18 03:56 ALT 84 U/L (12-78) H 04/18/18 03:56 Alkaline Phosphatase 74 U/L (45-117) 04/18/18 03:56 Total Creatine Kinase 599 U/L (39-308) H 04/19/18 05:05 CK-MB (CK-2) 2.7 ng/mL (0.5-3.6) 04/19/18 05:05 CK-MB (CK-2) % 0.5 % (0.0-4.0) 04/19/18 05:05 Total Protein 7.1 g/dL (6.4-8.2) D 04/18/18 03:56 Albumin 3.4 g/dL (3.4-5.0) 04/18/18 03:56 Nasal Screen MRSA (PCR) Not detected (Negative) 04/15/18 22:15 Salicylates Less than 1.7 mg/dL (2.8-20.0) L 04/16/18 14:00 Acetaminophen Less than 2.0 mcg/mL (10.0-30.0) L 04/16/18 14:00 Hepatitis A IgM Ab Nonreactive (Nonreactive) 04/17/18 03:56 Hep Bs Antigen Nonreactive (Nonreactive) 04/17/18 03:56 Hep B Core IgM Ab Nonreactive (Nonreactive) 04/17/18 03:56 Hep C IgG Ab Reactive (Nonreactive) H 04/17/18 03:56 Impressions Chest X-Ray 04/18/18 04:00 CONCLUSION: Patient extubated. No focal lung disease Objective Remarks: GENERAL: Is a well-developed well-nourished male sedated and intubated. SKIN: Warm and dry. HEAD: Atraumatic. Normocephalic. EYES: Pupils equal and round. No scleral icterus. No injection or drainage. ENT: No nasal bleeding or discharge. Mucous membranes pink and moist. NECK: Trachea midline. No JVD. CARDIOVASCULAR: Normal rate, regular rhythm. RESPIRATORY: No accessory muscle use. Clear to auscultation. Breath sounds equal bilaterally. GASTROINTESTINAL: Abdomen soft, non-tender, nondistended. No guarding. MUSCULOSKELETAL: Extremities without clubbing, cyanosis, or edema. No obvious deformities. NEUROLOGICAL: Sedated currently on Versed and Propofol .RASS -2. No gross focal/sensory deficits. Follows commands in all 4 extremities. Assessment and Plan - Assessment and Plan Plan: Respiratory failure-resolved -Obtain O2 saturation greater than 92%. Patient currently on room air O2 saturation 98-99% -DuoNeb's as needed Amphetamine intoxication Psychotic ETOH Use Disorder Opioid use disorder -Precedex infusion discontinued this a.m.. Patient responding appropriately, restraints now discontinued -Creatinine kinase improving-LR decreased to 100 cc/hour -Monitor for withdrawal symptomatolog -Salicylate and Tylenol levels low -CIWA protocol added to medication regimen - Psychiatry following-and transfer to psychiatry [facility] floor upon bed availability - Denis Act Acute kidney injury Rhabdomyolysis -Severe dehydration-resolved -Strict I's and O's -IV fluid hydration -Monitor electrolytes and creatinine levels -Trend creatinine kinase-1761->599 - Continue LR 100 cc/hour, follow-up creatinine kinase level in a.m. Transaminitis Hepatitis C -Likely due to drug overdose -Monitor trend and watch for coagulopathy -INR within normal limits. DT prophylaxis initiated Fever-resolved -With tachycardia -Due to methamphetamine intoxication -No antibiotics at this time DVT GI prophylaxis -Teds SCDs -Subcu heparin -Pepcid Level 2 followup-transfer to [facility] in a.m. plan transfer to psychiatric [facility] floor upon bed availability Code Status: Full Discussed Condition With: Patient's mother, patient, and H[employer] K[employer] OPERATOR at bedside
[2018-04-19] MEDS ORDERED: QUEtiapine 25 MG Tablet PO SCH (16:30)
[2018-04-19] MEDS: Chlorhexidine 0.12% Oral Kit 15 ML UDC OROPHARYNG SCH ×2 (18:51→20:52)
[2018-04-20] MEDS: Heparin - SQ 10,000 UNITS/ML Vial SQ SCH ×2 (00:15→08:16)
[2018-04-20] MEDS: Oral Hygiene Kit OROPHARYNG SCH ×3 (00:15→12:11)
[2018-04-20 00:51] VITALS: TEMP 98.2
[2018-04-20] MEDS: LORazepam 1 MG Tablet PO PRN (03:39)
[2018-04-20] MEDS: Chlorhexidine Gluconate 2% 1 Pack (2 Cloths) TOPICAL SCH (05:50)
[2018-04-20] MEDS: Famotidine PF Inj 20 MG/2 ML Vial IV.PUSH SCH (08:15)
[2018-04-20] MEDS: Senna/Docusate Sodium 8.6/50 MG Tablet PO SCH (08:16)
[2018-04-20] MEDS: Chlorhexidine 0.12% Oral Kit 15 ML UDC OROPHARYNG SCH (08:17)
[2018-04-20 08:39] LABS: Anion Gap 6 meq/L (5-15); Blood Urea Nitrogen 8 mg/dL (7-18); Calcium 8.9 mg/dL (8.5-10.1); Carbon Dioxide 28.6 meq/L (21.0-32.0); Chloride 106 meq/L (98-107); Creatine Kinase 299 U/L (39-308); Glomerular Filtration Rate Greater Than 89 mL/min (>89); Glucose,Random 96 mg/dL (74-106); Potassium 3.6 meq/L (3.5-5.1); Sodium 141 meq/L (136-145)
[2018-04-20] MEDS ORDERED: QUEtiapine 25 MG Tablet PO SCH (09:00)
--- NOTE | 2018-04-20 09:34 | P.PNIM ---
Subjective Interval history: Patient does not have any complaints. Eating. No nausea, vomiting, muscle aches. No suicidal ideations. Just received Ativan for withdrawal symptoms. Physical Exam Vital signs: Vital Signs 04/19/18 10:00 04/19/18 10:08 04/19/18 11:07 Temperature Pulse Rate 64 88 74 Respiratory Rate Blood Pressure Pulse Oximetry 100 04/19/18 11:16 04/19/18 12:00 04/19/18 13:01 Temperature Pulse Rate 80 86 92 H Respiratory Rate 30 H 28 H 18 Blood Pressure 130/83 124/64 132/77 Pulse Oximetry 04/19/18 14:00 04/19/18 15:01 04/19/18 16:00 Temperature Pulse Rate 73 54 L 58 L Respiratory Rate 27 H 16 17 Blood Pressure 128/78 153/93 H 137/73 Pulse Oximetry 96 99 98 04/19/18 17:00 04/19/18 18:00 04/19/18 20:00 Temperature Pulse Rate 80 69 66 Respiratory Rate 27 H 24 22 Blood Pressure 132/58 L 142/84 H 107/52 L Pulse Oximetry 98 98 96 04/19/18 22:00 04/19/18 22:01 04/19/18 23:00 Temperature Pulse Rate 64 74 73 Respiratory Rate 18 22 Blood Pressure 133/62 138/71 Pulse Oximetry 98 98 04/20/18 00:00 04/20/18 02:00 04/20/18 03:00 Temperature 98.2 F Pulse Rate 81 64 88 Respiratory Rate 26 H 18 Blood Pressure 133/66 123/73 Pulse Oximetry 99 100 04/20/18 04:00 04/20/18 06:00 Temperature Pulse Rate 60 60 Respiratory Rate 22 Blood Pressure 148/79 H Pulse Oximetry 99 Intake & Output 04/19/18 04/20/18 04/20/18 18:59 06:59 18:59 Intake Total 2950 / 2950 1000 / 1000 Output Total 2750 / 2750 Balance 200 / 200 1000 / 1000 Weight 75 kg Intake: IV 1999 / 1999 1000 / 1000 LR 1000 mL Inj 1,000 ML @ 100 1999 / 1999 1000 / 1000 mls/hr IV.CONT .Q10H PA Rx#: [id number] Oral 950 / 950 Output: Urine 2750 / 2750 Other: Date of Last Bowel Movement 04/19/18 04/20/18 # Bowel Movements 7 7 Narrative: Alert awake and oriented to place, person, month but not to date and year. Not in distress Regular rate and rhythm, no murmurs Clear breath sounds Abdomen soft nontender No edema Moves all extremities. Urinary Catheter Management Indwelling Urethral Catheter: Cath placed during this visit: yes, but has since been removed by the nurse Reason for continuing: Decision to DC catheter Insertion date: 04/15/18 Removal date: 04/20/18 Removal time: 00:52 Results Labs CBC & Chem 7: 04/19/18 05:05 04/20/18 07:04 Assessment and Plan Plan This is a 38-year-old male brought to the ED at [facility] by a friend after an overdose of methamphetamines. Patient became agitated and aggressive with uncontrolled movements. Patient was initially admitted to the intensive care unit, intubated and successfully extubated 04/17/2017. Respiratory failure-resolved, extubated 04/17/2017. -Obtain O2 saturation greater than 92%. Patient currently on room air O2 saturation 98-99%, duo nebs as needed. Amphetamine intoxication Psychotic ETOH Use Disorder Opioid use disorder -Off restraints. Creatinine kinase now stable. Stop IVF. -Salicylate and Tylenol levels low -CIWA protocol - Denis Act, on Seroquel, continue per psychiatry. Transfer to psychiatry [facility] once bed available. Patient need to continue on CIWA protocol with clonidine as needed. Acute kidney injury to rhabdomyolysis-improved with volume resuscitation, stop IVF. Transaminitis Hepatitis C -Likely due to drug overdose, INR within normal limits, follow AST and ALT today. Fever-resolved, likely from methamphetamine intoxication. No antibiotics. DVT GI prophylaxis -Teds SCDs -Subcu heparin -Pepcid Progress Note: Quality VTE Deep Vein Thrombosis/Pulmonary Embolism Present on Admission: No
--- NOTE | 2018-04-20 10:46 | P.DS ---
DS: Providers Date of admission: 04/15/18 22:15 Primary care physician: UNKNOWN Consults: 04/17/18 14:49 Consult to Psychiatry Stat Consulting Provider: Octavio Keys For STAT consult, spoke directly to:: [employer] Annabelle Christianson [employer]:: Octavio Keys Reason for Consultation: Status post amphetamine overdose positive for cocaine. Subsequently now elevated temperature concern for for possible NMS, please evaluate Notified:: Office Spoke with:: Em Date Notified:: 04/17/18 Time Notified:: 14:57 Ordering Provider: SANFORD 04/19/18 10:24 Consult to Hospitalist Routine Consulting Provider: Nathaniel Jang Reason for Consultation: Patient with diagnosis of psychosis, status post amphetamine overdose, opioid abuse disorder. Acid X now discontinued. Patient continues on C1 protocol psychiatry is following plan for transfer to psych psychiatric [facility] Notified:: Service Spoke with:: LOLLY Date Notified:: 04/19/18 Time Notified:: 10:30 Comments:: Ordering Provider: SANFORD Brief History from admission: 38-year-old male was brought in the emergency department [facility] by his friend as an overdose of methamphetamines. Patient was agitated with aggressive behavior, uncontrolled movements, pressured speech, labored breathing, palpitations, chest pain, unsteady gait on a constant state of movement on the bed. Initial evaluation of the patient was limited due to the patient medical status. Local police and security had to intervene to assist restraining the patient to start IV access. Patient was intubated for an airway protection by ED attending, sedated, placed on the vent. Patient initial temperature was 104 rectally with a heart rate of 150 blood pressure of 136/74. Patient stated that he needs help and he presented voluntarily to the emergency room for for help. Later on after stabilizing of the patient his mother presented to the bedside stating that the patient is on Suboxone. He has been transferred to [facility] ICU sedated and intubated. DS: Diagnosis Discharge Diagnosis (1) Polysubstance dependence: Status: Acute (2) Drug overdose: Status: Acute (3) Respiratory failure: Status: Acute DS: Summary This is a 38-year-old male brought to the ED at [facility] by a friend after an overdose of methamphetamines. Patient became agitated and aggressive with uncontrolled movements. Patient was initially admitted to the intensive care unit, intubated and successfully extubated 04/17/2017. Patient was then transferred to the hospitalist service. Patient continued to improve. Creatinine normalized, no further fever, leukocytosis resolved. Patient was seen by psychiatry and recommended transfer to medical-psychiatry unit. Patient cleared for discharge. Off restraints. Continue Seroquel per psychiatry, continue CIWA protocol and clonidine as needed. Follow-up BMP and LFTs in a few days. Time Spent with Patient Total time spent providing and/or coordinating discharge services: Greater than 30 minutes Quality: VTE Deep Vein Thrombosis/Pulmonary Embolism Present on Admission: No Exam Narrative Exam Narrative: Alert awake and oriented to place, person, month but not to date and year. Not in distress Regular rate and rhythm, no murmurs Clear breath sounds Abdomen soft nontender No edema Moves all extremities. Results Labs on day of discharge: Labs from last 24 hours 04/20/18 07:04 Sodium 141 Potassium 3.6 Chloride 106 Carbon Dioxide 28.6 Anion Gap 6 BUN 8 Creatinine 0.92 Estimated GFR Greater than 89 Random Glucose 96 Calcium 8.9 Total Creatine Kinase 299 Impressions ITS Impressions Chest X-Ray 04/18/18 04:00 CONCLUSION: Patient extubated. No focal lung disease Discharge Plan Discharge Disposition Patient Disposition: 65 Disc To [facility] Discharge Condition Condition: Good Discharge Order Discharge Orders: Discharge Order (Routine); Ordered 04/20/18 Ordered By: Nathaniel Jang Discharge Details Anticipated Discharge Date: 04/20/18 Discharge Comment: Dc to [facility] Team Primary Care Provider: UNKNOWN, Attending Provider: Nathaniel Jang Other Providers: Octavio Keys Rxs /Orders / Referrals /Forms Prescriptions: New quetiapine 25 mg Tablet 50 mg PO BID Qty: 60 RF: 0 clonidine HCl [Catapres] 0.1 mg Tablet 0.1 mg PO Q8HR Qty: 30 RF: 0 No Action Unable to Obtain Home Meds RF: 0 Referrals: UNKNOWN, [Primary Care Provider] - See Instructions Status ED Status: Admitted Patient
[2018-04-20 10:56] VITALS: RESP 16
[2018-04-20 11:47] LABS: Albumin 3.5 g/dL (3.4-5.0)
[2018-04-20 11:49] LABS: Total Protein 7.2 g/dL (6.4-8.2)
[2018-04-20 15:18] VITALS: BP 102/58; O2SAT 100
[2018-04-20 17:27] VITALS: PULSE 73
== END 2018-04-20 17:15 | DRG 917 ==
LOC: NEDDLT 22:05 → HIMC 22:15 → H4EA 04-20 17:08
PROVIDERS: ADMIT Hospitalist; ATTEND Hospitalist
DX: F14.20 Cocaine dependence, uncomplicated; R00.0 Tachycardia, unspecified; F15.23 Other stimulant dependence with withdrawal; T43.621A Poisoning by amphetamines, accidental (unintentional), initial encounter; R07.9 Chest pain, unspecified; Z81.8 Family history of other mental and behavioral disorders; R26.81 Unsteadiness on feet; F23 Brief psychotic disorder; R45.851 Suicidal ideations; F15.229 Other stimulant dependence with intoxication, unspecified; F31.9 Bipolar disorder, unspecified; E86.0 Dehydration; Z87.891 Personal history of nicotine dependence; F12.20 Cannabis dependence, uncomplicated; Z91.14 Patient's other noncompliance with medication regimen; J96.90 Respiratory failure, unspecified, unspecified whether with hypoxia or hypercapnia; Z78.1 Physical restraint status; F10.20 Alcohol dependence, uncomplicated; F11.20 Opioid dependence, uncomplicated; R00.2 Palpitations; M62.82 Rhabdomyolysis; R50.9 Fever, unspecified; B19.20 Unspecified viral hepatitis C without hepatic coma; F60.2 Antisocial personality disorder; N17.9 Acute kidney failure, unspecified
CPT/HCPCS: 31500; 36600; 51702; 71010; 71045; 80048; 80053; 80074; 80076; 80307; 81001; 82248; 82550; 82552; 82805; 82948; 82962; 83605; 83690; 83735; 84100; 84484; 85025; 85610; 85730; 87040; 87641; 90761; 90765; 90767; 90775; 93005; 94002; 94003; 94656; 94657; 94770; 96361; 96365; 96367; 96375; 97162; 99291; J0131; J0330; J1630; J1644; J2060; J2250; J2543; J2704; J7030; J7050; J7120

== ENCOUNTER 2018-04-20 14:35 | Inpatient (IN) ==
[2018-04-20 17:45] VITALS: BP 151/66; PULSE 107; RESP 20; TEMP 97.7
[2018-04-20] MEDS ORDERED: Aluminum/Magnesium/Simethacone Susp 30 ML UDC PO PRN (18:10)
[2018-04-20] MEDS ORDERED: Acetaminophen 325 MG Tablet PO PRN (18:10)
[2018-04-20] MEDS: LORazepam 1 MG Tablet PO PRN (21:42)
[2018-04-21] MEDS: LORazepam 1 MG Tablet PO PRN (08:25)
--- NOTE | 2018-04-21 13:20 | P.CONIM ---
History of Present Illness Service: [facility] Consult date: 04/21/18 Requesting Physician: Maverick Edmond Reason for Consult: medical management Primary Care Provider: UNKNOWN Chief Complaint: amphetamine overdose History of Present Illness: Patient is 38-year-old male who was brought to the emergency department in [place] by his friend as an overdose of methamphetamines. Patient was transferred to [facility] ICU sedated and intubated. He was successfully stabilized and extubated 04/17/[address] [facility] and then transferred under the care of the Hospitalist service. Patient was seen in consultation by Psychiatry with recommendation for patient to be transferred to inpatient psychiatric care once medically optimized. Patient is currently under the care of the psychiatry team and Hospitalist team has been consulted for continued evaluation and management of patient's abnormal Cr and LFT's at time of admission. Patient states he did not intend to harm himself but when the police showed up he consumed all of the methamphetamine on hand. He denies any urinary symptoms. No abdominal pain, nausea or vomiting. Review of Systems Review of Systems: all other systems reviewed are negative PMFSH History History Provided By: Patient and Medical Record Medical History Medical History Medical history unknown (Acute) Surgical history unknown (Acute) Social History Social History Substance History: Active Abuse Second Hand Smoke Exposure: Yes Smoking Status: Heavy tobacco smoker Tobacco Type: Cigarettes How Often Do You Have a Drink Containing Alcohol: 4 or more times a week Substance Abuse Detail Marijuana: Substance Use Status: Active Route Used Substance Abuse: Inhalation Reason for Use: Get High Crack/Cocaine: Substance Use Status: Active Route Used Substance Abuse: Inhalation Reason for Use: Get High Methamphetamine: Substance Use Status: Active Medications and Allergies Allergies Allergy/AdvReac Type Severity Reaction Status Date / Time No Known Allergies Allergy Verified 04/15/18 17:49 Active Medications: Active Medications Acetaminophen (Tylenol) 650 mg PO Q4H PRN PRN Reason: Pain 1-5 or Temp >101F Al Hydrox/Mg Hydrox/Simethicone (Mag-Al Plus Susp Liq) 30 ml PO Q6H PRN PRN Reason: DYSPEPSIA Al Hydroxide/Mg Hydroxide (Milk Of Magnesia Liq) 30 ml PO Q12H PRN PRN Reason: Mild Constipation Flumazenil (Romazicon Inj) 0.2 mg IV.PUSH Q1M PRN PRN Reason: OVERSEDATION Lorazepam (Ativan) 1 mg PO Q6H PRN PRN Reason: MODERATE TO SEVERE ANXIETY Last Admin: 04/21/18 08:25 Dose: 1 mg Lorazepam (Ativan Inj) 1 mg IM Q6H PRN PRN Reason: MODERATE TO SEVERE ANXIETY Lorazepam (Ativan) 2 mg PO Q2H PRN PRN Reason: for CIWA 11-14 Lorazepam (Ativan Inj) 2 mg IV.PUSH Q2H PRN PRN Reason: for CIWA 11-14 Lorazepam (Ativan Inj) 2 mg IV.PUSH Q1H PRN PRN Reason: for CIWA 15-20 Lorazepam (Ativan Inj) 2 mg IV.PUSH Q15M PRN PRN Reason: for CIWA > 20 Nicotine (Habitrol 21 Mg Patch.24 Hr) 1 patch T-DERMAL DAILY PA Last Admin: 04/21/18 08:25 Dose: 1 patch Physical Exam Vital signs: Vital Signs 04/20/18 17:44 Temperature 97.7 F Pulse Rate 107 H Respiratory Rate 20 Blood Pressure 151/66 H Intake & Output 04/20/18 04/21/18 04/21/18 18:59 06:59 18:59 Intake Total 360 / 360 840 / 840 Balance 360 / 360 840 / 840 Weight 75.1 kg Intake: Oral 360 / 360 840 / 840 Other: Weight On Admission 75.1 kg Assessment and Plan Plan This is a 38-year-old male brought to the ED at [facility] by a friend after an overdose of methamphetamines. Patient became agitated and aggressive with uncontrolled movements. Patient was initially admitted to the intensive care unit, intubated and successfully extubated 04/17/2017. Amphetamine intoxication Psychotic ETOH Use Disorder Opioid use disorder -primary management per psychiatric team Acute kidney injury due to rhabdomyolysis -improved with volume resuscitation Transaminitis Hepatitis C -Likely due to drug overdose, INR within normal limits -pt advised on outpatient follow with PCP for repeat lab work in 1 week. Respiratory failure-resolved, extubated 04/17/2017. -no respiratory distress, patient on room air MDM: self Code: Full GI ppx: none DVT ppx: SCD's, pt ambulatory Discussed with: RN, patient, supervising MD Dispo: per primary team Thank you for this consultation. Hospitalist team will sign off. Please reconsult if needed.
--- NOTE | 2018-04-21 17:01 | P.HPPSY ---
Provisional Diagnosis Admission Date: April 20, 2018 17:23 [place] I.: Substance induced mood disorder, polysubstance use disorder Competence Certification of Person's Competence To Provide Express and Informed Consent I have personally examined Onofre De La O, a person being served at [facility] on, April 21, 2018 1700. Express and informed consent means consent voluntarily given in writing, by a competent person, after sufficient explanation and disclosure of the subject matter involved to enable the person to make a knowing and willful decision without any element of force, fraud, deceit, duress, or other form of constraint or coercion. This person is 18 years of age or older, is not now known to be incompetent to consent to treatment with a guardian advocate, and does not have a health care surrogate or proxy currently making medical treatment decisions. I have found this person to be one of the following: [xxx] Competent to provide express and informed consent, as defined above, for voluntary admission to this facility and is competent to provide express and informed consent for treatment. He/she has the consistent capacity to make well reasoned, willful, and knowing decisions concerning his or her medical or mental health treatment. The person fully and consistently understands the purpose of the admission for examination/placement and is fully capable of personally exercising all rights assured [place] Incompetent to provide express and informed consent to voluntary admission, and this is incompetent to provide express and informed consent to treatment. The person must be transferred to involuntary status and a petition for a guardian advocate filed with the Circuit Court. [xxx] Refusing to provide express and informed consent to voluntary admission but is competent to provide express and informed consent for treatment. The person must be discharged or transferred to involuntary status. Form shall be completed within 24 hours of a person's arrival at the receiving facility and filed in the clinical record of each person: 1. Admitted on a voluntary basis 2. Permitted to provide express and informed consent to his/her own treatment 3. Allowed to transfer from involuntary to voluntary status 4. Prior to permitting a person to consent to his or her own treatment after having been previously found incompetent to consent to treatment. History of Present Illness Capacity: Has capacity History of Present Illness: Patient is a 38 y/o man, states living with girlfriend, unemployed, history of multiple incarcerations, past psychiatric history of self reported bipolar disorder, polysubstance use disorder (opiates, amphetamines, cocaine, alcohol, suboxone), no prior psychiatric admissions, no previous suicide attempts, no past medical history who was recently admitted to medical service after friend had brought patient to ED after methamphetamine overdose which patient was admitted to ICU requiring intubation with noted agitation which patient during medical stabilization was seen by psychiatry for agitation and aggressive behavior requiring four point restraints and recommended for inpatient psychiatric admission at that time. Initial consult as stated below by Dr. Laird: patient is a 38-year-old man, domiciled with his mother in [facility], unemployed, single, he has a girlfriend, with a psychiatric history of self- reported bipolar disorder, polysubstance dependence including opiates, amphetamines, cocaine, alcohol, Suboxone, unknown dose, no previous psychiatric admissions, he denies previous suicidal attempts, poor impulse control, history of incarcerations, violence, no significant medical history, who was brought in the emergency department if [place] by his friend as an overdose of methamphetamines. Patient was agitated with aggressive behavior, uncontrolled movements, the patient was described as having prominent pressured speech, labored breathing, palpitations, chest pain, unsteady gait on a constant state of movement on the bed. Initial evaluation of the patient was limited due to the patient medical status. Local police and security had to intervene to assist restraining the patient to start IV access. Patient was intubated for an airway protection by ED attending, sedated, placed on the vent. Patient initial temperature was 104 rectally with a heart rate of 150 blood pressure of 136/74. Patient stated that he needs help and he presented voluntarily to the emergency room for for help. Later on after stabilizing of the patient his mother presented to the bedside stating that the patient is on Suboxone. He has been transferred to [facility] ICU sedated and intubated. The patient was admitted due to respiratory failure, amphetamine intoxication , acute kidney injury, transaminitis, fever. Once the patient was extubated in the ICU, he became extremely aggressive, and for this reason he was consulted to psychiatry as an emergency. The chart was reviewed. The case was widely discussed with nurse in charge and also with critical care doctor. When I arrived to the ICU I find the patient restrained in 4 points, he is fighting with the restraint, very disorganized, aggressive, requesting to be discharged. The patient is persistently asking to find his friend Maverick "who was with me". At some point during the interview he accused me to kill his best friend. The patient is completely disoriented, he is oriented in person, but disoriented in time and place. His mother and girlfriend at bedside seem to be hopeless, unable to control him. In order to calm down the patient I have to ordered 5 mg of Haldol and 2 mg of Ativan IV stat. Patient during my evaluation was found sitting in dayroom watching television. Nursing staff reported that patient was perseverative on benzodiazpines overnight but no behavioral disturbances and was visited extensivlely by mother and girlfriend. He is noted to be calm and cooperative, states that had swallowed about 7 grams of methamphetamine when riding in a car with his friend and being pulled over by police. He states that he did not want to be found with the drugs and had swallowed it to avoid being caught with it. He states that he immediately felt ill and asked his friend to bring hiim to the ED for help. He states that he was not intending to end his life and that he has his family to live for. He states feeling anxious to get back home, denies any depressive sympotoms nor any manic symptoms at this time. He denies any psychotic symptoms, no perceptual disturbances nor any delusional material elicited. He states feeling motivated in engaging in rehabiliation program for substance use. Collateral information obtained by treatment confirmed that family had no acute safety concerns and agreed to have patient return home. Family Psychiatric history: Aunt with bipolar disorder Past psychiatric history: self reported bipolar disorder, denies prior psychiatric admissions, denies prior suicide attempts, reports outpatient provider, Dr. Gray which he is prescribed suboxone through him. Substance use history: multiple substance use including opiates, cocaine, methamphetamine, ETOH, THC, prior rehabiliation programs in the past Past medical history: denies Allergies NKDA Social history: domiciled with girlfriend, multiple incarcerations, unemployed. - Inpatient Certification I certify that the inpatient services were ordered in accordance with Medicare regulations governing the order. This includes certification that hospital inpatient services are reasonable and necessary and in the case of services not specified as inpatient-only under 42 CFR 419.22(n), that they are appropriately provided as inpatient services in accordance to with the 2-midnight benchmark under 43 CFR 412.3(e) I certify that inpatient psychiatric hospital services are medically necessary. Evaluation and treatment and/or diagnostic testing are expected to improve the patient's condition. The patient needs on a daily basis, active treatment furnished directly by or requiring the supervision of inpatient psychiatric facility personnel. Estimated Total Length of Stay (Days): 1 Plans for Post Hospital Care: Home Review of Systems All other systems reviewed negative except as stated in HPI PMFSH - History History Provided By: Patient, Medical Record - Medical History Medical History: Medical History (Last Reviewed 04/21/18 @ 16:00 by Cheri Humphries APRN) Medical history unknown Surgical history unknown - Tobacco History Second Hand Smoke Exposure: Yes Tobacco Use In Past 30 Days: Yes Smoking Status: Heavy tobacco smoker Tobacco Type: Cigarettes - Alcohol History How Often Do You Have a Drink Containing Alcohol: 4 or more times a week - Substance Use History Substance History: Active Abuse - Substance Use Type Marijuana Status: Active Route Used: Inhalation Reason for Use: Get High Crack/Cocaine Status: Active Route Used: Inhalation Reason for Use: Get High Methamphetamine Status: Active Quality Measures - Psychiatric History Violence risk to others in the last 6 months: low Violence risk to self in the last 6 months: low - Substance Abuse History Drug or alcohol use in the past 12 months: see HPI - Patient Strengths Patient's strengths (minimum of 2): verbal and communicative Medications and Allergies Allergies Allergy/AdvReac Type Severity Reaction Status Date / Time No Known Allergies Allergy Verified 04/15/18 17:49 Exam Vital signs: Vital Signs 04/20/18 17:44 Temperature 97.7 F Pulse Rate 107 H Respiratory Rate 20 Blood Pressure 151/66 H Intake & Output 04/20/18 04/21/18 04/21/18 18:59 06:59 18:59 Intake Total 360 / 360 840 / 840 Balance 360 / 360 840 / 840 Weight 75.1 kg Intake: Oral 360 / 360 840 / 840 Other: Weight On Admission 75.1 kg Narrative: Not noted to be in acute distress, no gross motor abnormalities, no signs of tremor or EPS, no psychomotor agitation or retardation - Constitutional no acute distress, cooperative Mental Status Examination Appearance: Appropriate Consciousness: Alert Orientation: x4 Motor Activity: Normal gait Speech: Unremarkable Language: Adequate Fund of Knowledge: Inadequate Attention and Concentration: Adequate Memory: Unremarkable Mood: Appropriate Affect: Appropriate Thought Process & Associations: Intact, Goal directed, Linear Thought Content: Appropriate Hallucination Type: None Delusion Type: None Suicidal Ideation: No Suicidal Plan: No Suicidal Intention: No Homicidal Ideation: No Homicidal Plan: No Homicidal Intention: No Insight: Fair Judgment: Impulsive Assessment and Plan - Assessment (1) Substance induced mood disorder Code(s): F19.94 - Other psychoactive substance use, unspecified with psychoactive substance-induced mood disorder Status: Acute (2) Polysubstance dependence Code(s): F19.20 - Other psychoactive substance dependence, uncomplicated Status: Acute - Plan Plan: Estimated LOS: [] days Patient is a 38 y/o man who carries a diagnosis of self reported bipolar disorder, polysubstance use disorder, no prior psychiatric admission, no prior suicide attempts, history of multiple incarcerations, who was recently managed on the medical service for recent methamphetamine intoxication requiring ICU stabilzation and during admission and intoxication was noted to have aggressive behavior which he was transferred to the inpatient psychiatry unit. Patient observed since transfer to not have any further episodes of agitation nor any behavioral dyscontrol. Patient recent behavior liklely secondary to intoxication as he now as medically cleared is with appropriate behavior and no longer confused or disoriented. Patient denies any depressive, manic or psychotic symptoms and recent symptomatoogy likely secondary to substance induced mood symptoms and behavior. Patient's collateral contacts have been visiting with patient and prior to discharge expressed no safety concern for patient to be discharged. Patient no longer endorsing any acute psychiatric symptom that will require further psychiatric hospitalization but will benefit from substance rehabilitation program for substance use and to continue with quetiapine as started on the medical floor prior to transfer for mood stabilization benefit. Patient denies any suicidal or homicidal ideaiton, agrees to continue treatment and engage in outpatient follow up and rehab program.. Patient's collateral contact (girlfriend) with no safety concern at this time of patient being discharged home wtih her and plan to pick patient up upon discharge. Patient is psychiatrically cleared for discharge. Patient advised to return to ED in case of any emergency, which he agrees. Justification for Continued Inpatient Stay: Patient for discharge.
== END 2018-04-21 15:00 | disposition home or self-care (01) | DRG 897 ==
LOC: H4EA 17:23
PROVIDERS: ADMIT Student in an Organized Health Care Education/Training Program; ATTEND Student in an Organized Health Care Education/Training Program